=== PATIENT | female | born 1960 | race Caucasian/White ===

== ENCOUNTER 2024-11-15 17:39 | Inpatient (IN) ==
[2024-11-15 18:18] LABS: Hematocrit (blood only) 25.6 % (37.0-47.0); Hemoglobin 7.6 g/dl (12.0-16.0); Immature Granulocytes # (auto) 0.04 K/uL (0.01-0.20); Immature Granulocytes % (auto) 0.4 %; Mean Corpuscular Hemoglobin 23.1 pg (25.0-34.0); Mean Corpuscular Volume 77.8 fL (80.0-100.0); Platelet Count 395 K/uL (130-400); RDW Standard Deviation 49.9 fL (36.4-46.3); Red Blood Count 3.29 M/uL (4.20-5.40); White Blood Count 11.13 K/ul (4.8-10.8)
[2024-11-15 18:34] LABS: Alanine Aminotransferase 11.0 U/L (7-52); Albumin Globulin Ratio 1.1 (0.9-2); Alkaline Phosphatase 110.0 U/L (34-104); Anion Gap 9.0 (3-11); Bilirubin,Total 0.2 mg/dl (0.2-1.0); Blood Urea Nitrogen 40.0 mg/dl (6-23); Calcium 9.2 mg/dl (8.6-10.3); Carbon Dioxide 23.0 mmol/L (21-32); Chloride 106.0 mmol/L (98-107); Creatinine Clr Calc Pharmacy 57.1 ml/min; Globulin 3.5 gm/dl (2.5-4.0); Glucose 93.0 mg/dl (70-99(Fasting)); Potassium 3.7 mmol/L (3.5-5.1); Sodium 138.0 mmol/L (136-145); Total Protein 7.3 gm/dl (6.0-8.3)
[2024-11-15 18:38] LABS: Polychromasia 1+
[2024-11-15 18:46] LABS: INR 0.9 (0.9-1.1); Partial Thromboplastin Time 21 Seconds (21-31); Prothrombin Time 10.3 Seconds (9.0-12.0)
--- NOTE | 2024-11-15 19:12 | Emergency Department Note ---
ED Provider Note History of Present Illness Chief Complaint: Abnormal Labs/Diagnostic Testing Stated Complaint: SOB, LOW HEMOGLOBIN, ABN LABS, REF BY Time Seen by Provider: 11/15/24 18:13 63-year-old female who was referred to the emergency department by her PCP for evaluation of a GI bleed, dental infection, exertional chest pain and dizziness when getting up. The patient currently denies any chest discomfort. The patient reports that she is currently on Eliquis and Plavix for history of a heart stent, pulmonary emboli and DVT. Patient reports that she also has a pacemaker as well. Patient reports bright red blood per rectum that has been periodic for the past few weeks. The patient reports that she has been taking ibuprofen 600 mg twice daily as needed for recurrent dental abscesses that have been treated with multiple antibiotics. She is currently taking clindamycin that was started less than a week ago. She cannot find a dentist that will see her because of her pacemaker. She has had previous facial swelling that has since resolved since taking the clindamycin. Patient has not had any prior colonoscopy studies. She used to work for [employer] for many years, and reports that she has had issues with external hemorrhoids. She denies any melanotic stools or upper abdominal pain, nausea or coffee-ground vomitus. The patient currently denies any pain. Home Medications Medication Instructions Recorded Confirmed Type AMITRIPTYLINE HCL 10 mg PO HS ##0 11/04/13 History ATORVASTATIN (LIPITOR) 10 mg PO QAM #0 tabs 11/04/13 History Hydrocodon/Acetaminophen 5MG/300MG 1 tab PO Q6H PRN Pain #0 tabs 11/04/13 History (VICODIN (5MG/300MG)) LEVOTHYROXINE SODIUM (SYNTHROID) 50 mcg PO QAM #0 tabs 11/04/13 History Duloxetine HCl (Cymbalta) 30 mg PO QAM ##0 08/28/14 History Gabapentin (Neurontin) 100 mg PO TID #0 caps 08/28/14 History Allergies Allergy/AdvReac Type Severity Reaction Status Date / Time No Known Allergies Allergy Unverified 10/09/14 05:36 Past Med/Surg History Problem List (Updated 11/15/24 @ 22:51 by Melvin Acevedo) Paroxysmal atrial fibrillation (Acute) History of heart artery stent (Acute) Acute renal insufficiency (Acute) Dental infection (Acute) Anemia (Acute) Acute lower GI bleeding (Acute) Spondylosis of lumbosacral joint (Acute 01/25/13) Medical History Cardiac pacemaker Tobacco use disorder Reactive airway disease Presence of combination internal cardiac defibrillator (ICD) and pacemaker Nonischemic cardiomyopathy Iron deficiency anemia Hypertension History of pulmonary embolism Uterine fibroid Diabetes Dental abscess Coronary artery disease Controlled substance agreement signed Combined hyperlipidemia Chronic pain syndrome Adjustment disorder with depressed mood Acquired hypothyroidism Paroxysmal atrial fibrillation Degenerative disc disease, lumbar (01/25/13) Surgical History Status post coronary artery stent placement S/P lumbar laminectomy Social History (Updated 11/15/24 @ 19:12 by Melvin Acevedo) Smoking Status: Current every day smoker Tobacco Type: Cigarettes Cigarettes Per Day: 10-20 cigarettes/day; Hx Alcohol Use: No Hx Substance Use: No Preferred Language: Burmese Communication Ability: Effective Hand Fretted Instrument Maker Required: No Beliefs That Will Affect Care: None marital status: Single Current Living Situation: Spouse current occupational status: employed Other Information That Helps Us Care for You: No Feels Safe at Home: Yes Safety Concerns: Feels Safe At This Time Assistive Devices: Glasses Physical Exam Vital Signs Vital Signs - 24 hr 11/15/24 17:44 11/15/24 18:17 11/15/24 18:26 Temperature 36.7 C Temperature Source Temporal Artery Scan Pulse Rate 87 68 Pulse Rate from SpO2 Sensor Respiratory Rate 17 Blood Pressure 135/66 Blood Pressure Mean 89 Pulse Oximetry 98 99 Oxygen Delivery Method Room Air Room Air Sepsis Recent Fever Within 48 Hours No Sepsis New/Unexplained Change in Mental Status N/A Sepsis Action Taken by Nursing No Action Required 11/15/24 18:27 11/15/24 18:30 11/15/24 18:57 Temperature Temperature Source Pulse Rate 71 68 74 Pulse Rate from SpO2 Sensor 70 68 74 Respiratory Rate 22 21 17 Blood Pressure Blood Pressure Mean Pulse Oximetry 99 98 99 Oxygen Delivery Method Sepsis Recent Fever Within 48 Hours Sepsis New/Unexplained Change in Mental Status Sepsis Action Taken by Nursing 11/15/24 19:00 11/15/24 19:00 11/15/24 19:00 Temperature Temperature Source Pulse Rate Pulse Rate from SpO2 Sensor Respiratory Rate Blood Pressure 135/67 135/67 135/67 Blood Pressure Mean 84 84 84 Pulse Oximetry Oxygen Delivery Method Sepsis Recent Fever Within 48 Hours Sepsis New/Unexplained Change in Mental Status Sepsis Action Taken by Nursing 11/15/24 19:03 11/15/24 19:30 11/15/24 19:30 Temperature Temperature Source Pulse Rate 71 Pulse Rate from SpO2 Sensor 70 Respiratory Rate 17 Blood Pressure 128/68 128/68 Blood Pressure Mean 82 82 Pulse Oximetry 98 Oxygen Delivery Method Sepsis Recent Fever Within 48 Hours Sepsis New/Unexplained Change in Mental Status Sepsis Action Taken by Nursing 11/15/24 19:30 11/15/24 19:57 11/15/24 20:00 Temperature Temperature Source Pulse Rate 70 72 Pulse Rate from SpO2 Sensor 70 71 Respiratory Rate 28 H 18 Blood Pressure 145/69 H Blood Pressure Mean 92 Pulse Oximetry 99 99 Oxygen Delivery Method Sepsis Recent Fever Within 48 Hours Sepsis New/Unexplained Change in Mental Status Sepsis Action Taken by Nursing 11/15/24 20:00 11/15/24 20:18 11/15/24 20:30 Temperature Temperature Source Pulse Rate 66 Pulse Rate from SpO2 Sensor 66 Respiratory Rate 20 Blood Pressure 145/69 H 144/67 H Blood Pressure Mean 92 83 Pulse Oximetry 100 Oxygen Delivery Method Sepsis Recent Fever Within 48 Hours Sepsis New/Unexplained Change in Mental Status Sepsis Action Taken by Nursing 11/15/24 20:30 11/15/24 20:30 11/15/24 20:30 Temperature Temperature Source Pulse Rate 71 Pulse Rate from SpO2 Sensor 70 Respiratory Rate 15 Blood Pressure 144/67 H 144/67 H Blood Pressure Mean 83 83 Pulse Oximetry 98 Oxygen Delivery Method Sepsis Recent Fever Within 48 Hours Sepsis New/Unexplained Change in Mental Status Sepsis Action Taken by Nursing CONSTITUTIONAL: Healthy and well nourished. Alert and oriented X 3. Patient does not appear in any acute distress. HEENT: Normocephalic, atraumatic. Pupils equal, round and reactive. No scleral icterus or conjunctival injection. The patient does have a mild conjunctival pallor. NECK: Full active range of motion without discomfort. LYMPHATICS: No cervical chain adenopathy. RESPIRATORY: Clear to auscultation bilaterally with no wheezing, crackles, rhonchi or stridor. CARDIOVASCULAR: Regular rate and rhythm with no murmurs, rubs or gallops. GASTROINTESTINAL: Bowel sounds present in all quadrants. No focal abdominal tenderness to palpation, rigidity, guarding or rebound. MUSCULOSKELETAL: No peripheral edema noted. INTEGUMENTARY: No rash or other significant dermatologic conditions noted. HEMATOLOGIC: No ecchymosis or petechiae. PSYCHIATRIC: Positive affect. NEUROLOGIC: No focal neurologic deficits noted. Course Course Patient history and physical exam were performed. Nursing notes were reviewed. Vital signs were reviewed and were normal. The patient is not hypotensive, tachycardic or febrile. I also reviewed outside medical records, including the patient's outpatient note from today from her PCP (Dr. Lynch). Patient did provide a history of few month history of shortness of breath, fatigue and dizziness. Cardiac history is also well documented in her note, including history of left heart catheterization in April 2023 showing severe RCA disease which was stented. She was placed on Plavix and Eliquis at that time. Patient also had a pacemaker defibrillator review 2 months ago that showed some episodes of paroxysmal atrial fibrillation. Patient did have some blood work done in January 2020 showing a hemoglobin of 11.2, and hemoglobin last week of 7.7. Patient also has had recurrent dental infections and has been treated with several antibiotics, with last treatment being clindamycin. PCP had concern for risk factors of this infection. The patient also admits to taking ibuprofen, which certainly could increase the risk for upper GI bleed. Because of need for probable GI workup, she was sent to the emergency department for further evaluation and management of her multiple comorbidities and anemia. Patient history and physical exam were performed. Nursing notes were reviewed. Vital signs reviewed from triage and were grossly normal. IV access was established, and labs are ordered and drawn. An ECG was performed and did not show any concerning findings. The patient was placed on radiation monitor while in the emergency department. Further review of labs shows a mildly elevated white count of 11.13 with a hemoglobin of 7.6. Patient does have a mildly elevated absolute neutrophil count. Coag studies were normal. CMP shows a BUN and creatinine of 40 and 1.24, respectively. The patient was hydrated with a liter normal saline. Findings were discussed with Dr. Paulino, ED attending physician. He did recommend initiating Protonix bolus and drip. Findings were also discussed with the patient. I did recommend admission for further workup and management. I did discuss possible need for blood transfusion, and the patient did sign informed consent for blood transfusion as needed. [facility]. Please see their dictation for further treatment and final disposition. The hospital service also did ask that I reach out to Dr. Mccormick with the coagulation clinic about the need for possible reversal. I did speak with Dr. Mccormick, who did not feel the reversal was needed. She does report that we do not have Andexxa for reversal of the Eliquis, and given that her hemoglobin is relatively stable without any recreating condition, she recommended just observing the patient overnight. She did welcome further contact with her overnight as needed for any change in condition. Administered Medications Pantoprazole Sodium 40 mg/ (Dextrose) 100 mls @ 20 mls/hr IV Q5H TRACY Stop: 12/15/24 19:29 Last Admin: 11/15/24 19:59 Dose: 8 mg/hr, 20 mls/hr Documented By: SALVADOR Lactated Ringer's (Lr) 1,000 mls @ 80 mls/hr IV .[id number] TRACY Stop: 11/16/24 21:29 Last Admin: 11/15/24 21:32 Dose: 80 mls/hr Documented By: XIOMY Insulin Aspart (Insulin Aspart Per Unit Charge) 0 units SC ACHS TRACY Stop: 12/15/24 21:27 Last Admin: 11/15/24 21:48 Dose: Not Given Documented By: XIOMY Discontinued Medications Pantoprazole Sodium 80 mg/ (Dextrose) 120 mls @ 480 mls/hr IV ONE STA Stop: 11/15/24 19:16 Last Infusion: 11/15/24 19:59 Dose: Infused Documented By: Admin: 11/15/24 19:44 Dose: 480 mls/hr Documented By: SALVADOR Ceftriaxone Sodium (Rocephin) 1,000 mg in 50 mls @ 100 mls/hr IV NOW STA Stop: 11/15/24 21:37 Last Admin: 11/15/24 22:08 Dose: 100 mls/hr Documented By: XIOMY Morphine Sulfate (Morphine Sulfate 2 Mg/Ml Carp) 2 mg IV NOW STA Stop: 11/15/24 19:33 Last Admin: 11/15/24 19:41 Dose: 2 mg Documented By: SALVADOR Pantoprazole Sodium (Pantoprazole Bolus/Drip) 1 each IV NOW STA Stop: 11/15/24 19:03 Last Admin: 11/15/24 19:52 Dose: Not Given Documented By: SALVADOR Medical Decision Making Medical Records Attestation: I reviewed the patient's medical records. Home Medications was personally reviewed by me Laboratory Data Attestation: I reviewed the patient's lab results. 11/15/24 18:01 11/15/24 18:01 Lab Results 11/15/24 11/15/24 11/15/24 Range/Units 18:01 18:03 19:33 WBC 11.13 H (4.8-10.8) K/ul RBC 3.29 L (4.20-5.40) M/uL Hgb 7.6 L (12.0-16.0) g/dl Hct 25.6 L (37.0-47.0) % MCV 77.8 L (80.0-100.0) fL MCH 23.1 L (25.0-34.0) pg MCHC 29.7 L (32.0-36.0) g/dL RDW Std Deviation 49.9 H (36.4-46.3) fL RDW Coeff of Lizbeth 17.8 H (11.5-14.5) % Plt Count 395 (130-400) K/uL MPV 9.7 (9.4-12.4) fL Immature Gran % (Auto) 0.4 % Neut % (Auto) 59.0 % Lymph % (Auto) 27.7 % [place] % (Auto) 9.4 % Eos % (Auto) 2.7 % Baso % (Auto) 0.8 % Neut # (Auto) 6.57 H (1.40-6.50) K/uL Lymph # (Auto) 3.08 (1.20-3.40) K/uL [place] # (Auto) 1.05 H (0.11-0.59) K/uL Eos # (Auto) 0.30 (0.00-0.50) K/uL Baso # (Auto) 0.09 (0.00-0.20) K/uL Immature Gran # (Auto) 0.04 (0.01-0.20) K/uL Polychromasia 1+ PT 10.3 (9.0-12.0) Seconds INR 0.9 (0.9-1.1) APTT 21 (21-31) Seconds PTT Ratio 0.8 Sodium 138 (136-145) mmol/L Potassium 3.7 (3.5-5.1) mmol/L Chloride 106 (98-107) mmol/L Carbon Dioxide 23 (21-32) mmol/L Anion Gap 9 (3-11) BUN 40 H (6-23) mg/dl Creatinine 1.24 H (0.6-1.2) mg/dl Est Cr Clr Drug Dosing 57.1 ml/min eGFR 49.51 BUN/Creatinine Ratio 32.3 H (10-20) Glucose 93 (70-99(Fasting)) mg/dl Calcium 9.2 (8.6-10.3) mg/dl Total Bilirubin 0.2 (0.2-1.0) mg/dl AST 11 L (13-39) U/L ALT 11 (7-52) U/L Alkaline Phosphatase 110 H (34-104) U/L Troponin I High Sens 7.0 (0-14) pg/ml Total Protein 7.3 (6.0-8.3) gm/dl Albumin 3.8 (3.4-5.0) gm/dl Globulin 3.5 (2.5-4.0) gm/dl Albumin/Globulin Ratio 1.1 (0.9-2) Blood Type B Positive Blood Type Recheck B Positive Antibody Screen NEGATIVE Crossmatch See Detail ECG Data Attestation: I personally reviewed and interpreted this ECG as follows: Indication: + weakness Rate (beats per minute): 67 Rhythm: + normal sinus ECG Intervals/blocks: + Normal QRS, + Normal QT and + Normal TN ECG [place]: + Normal ECG ST segments: + Normal ST segments Comparison ECG Date: from (08/28/2014) Change: the following changes noted (No recurrent PACs on today's ECG) MDM Narrative Cardiac monitoring: An order was placed for continuous cardiac monitoring. The monitor shows a rate of 67 bpm with a normal sinus rhythm. court recording monitor history was reviewed throughout the evaluation, and no dysrhythmias were noted. See ED Course section for further details of today's visit. The patient was referred to the emergency department for a low hemoglobin level. The patient is currently on Eliquis and Plavix for history of cardiac stent, pulmonary emboli and DVT. Patient is also been dealing with recurrent dental infections, most recently treated with clindamycin robotics. Her examination today does not show evidence for abscess formation or facial cellulitis, therefore additional IV antibiotics were deferred. Further workup does not show any electrolyte abnormalities. She does have an increased BUN and creatinine, likely secondary to hemoconcentration. The patient was hydrated with a liter normal saline. Hemoglobin on initial check today was 7.6. Patient does report bright red blood per rectum, as well as history of hemorrhoids, which is certainly consistent with a lower GI bleed. However given her NSAIDs use, concern is certainly present for possible upper GI bleed as well. The patient was administered IV proton pump inhibitors. The case was discussed with my attending physician, hospitalist, as well as Dr. Mccormick for suggested management and need for Eliquis or Plavix reversal, and she recommended not doing so overnight. Please see hospitalist dictations for further treatment and final disposition. Impression Acute lower GI bleeding, Anemia, Dental infection, Acute renal insufficiency, History of heart artery stent, Paroxysmal atrial fibrillation Discharge Plan Visit Data Chief Complaint: Abnormal Labs/Diagnostic Testing Stated Complaint: SOB, LOW HEMOGLOBIN, ABN LABS, REF BY ED Provider: Sven Paulino ED Midlevel Provider: Melvin Acevedo Discharge Problem: Acute lower GI bleeding, Anemia, Dental infection, Acute renal insufficiency, History of heart artery stent, Paroxysmal atrial fibrillation Patient Disposition: Admitted As Inpatient Condition: Fair Discharge Instructions Interventions: ED Discharge Assessment Last Done: 11/15/24 21:03 ED DC CONDITION Conditon at Discharge Condition at Discharge: Fair
[2024-11-15] MEDS: MoRPHine SULFATE 2 MG/ML CARP IV STA (19:41)
[2024-11-15] MEDS: PANTOPRAZOLE BOLUS/DRIP IV STA (19:52)
[2024-11-15] MEDS: PANTOprazole 40 MG in DEXTROSE 5% MINI-B 100 ML IV SCH (19:59)
--- NOTE | 2024-11-15 20:05 | History & Physical Report ---
Date of Service November 15, 2024 Assessment & Plan (1) Lower GI bleed: (2) Dental infection: (3) Anemia: (4) Acute renal insufficiency: Plan Patient is a 63-year-old female with past medical history of tobacco use (10 to 20 cigarettes/day), nonischemic cardiomyopathy and paroxysmal A-fib s/p pacemaker with ICD, CAD s/p cardiac stent April 2023, PE and DVT 2020, DM, COY, HTN. Patient presented due to referral by her PCP for hemoglobin of 7.7. Patient has had intermittent bright red blood in stool as well as exertional dyspnea, dizziness, and fatigue. She has been taking ibuprofen over the weekend as she has had a dental abscess on her right side for several months and is currently undergoing a course of antibiotics. She is being admitted for a suspected lower GI bleed. #lower GI bleed - Hgb 7.6, Hct 25.6%, BUN 40 on admission. Hemodynamically stable. Symptomatic with intermittent dizziness, dyspnea, and fatigue - asymptomatic at bedside. Patient denies ever having previous EGD or colonoscopy. Recent NSAID use with anticoagulation. Discussion with operational meteorologist anticoagulation clinic regarding Eliquis and antiplatelet reversal - given patient is relatively stable will defer reversal at this time - available by phone if condition changes - AP CT w/o con ordered - negative for acute changes - start on IV Rocephin - Protonix drip started in ED - transition to Protonix 40mg IV BID - GI consulted - N.p.o.; hold PO medications - LR at 80 mL/hour times 2L - H&H overnight Q4H; blood consent forms signed by ED provider - Will transfuse 2 U pRBC on admission given symptomatic - Hemoccult all stools - trend CBC #dental abscess - ongoing for several months, patient with difficultly finding a dentist. WBC 11.31 with neutrophil predominance. Currently undergoing a course of clindamycin with 6 PO doses left at time of admission. Transition to clindamycin IV with n.p.o. status - to complete course 09/17 IV Tylenol as needed with breakthrough morphine as needed - warm compress prn #renal insufficiency creatinine increased from 0.93-1.24, BUN 40. IVF as above Trend BMP #Hx PE and DVT - hold Eliquis #paroxysmal A-fib/nonischemic cardiomyopathy/CAD s/p pacer and ICD in place, cardiac stenting April 2023. - Holding Eliquis and Plavix - Hold statin and carvedilol while NPO #tobacco use 10 to 20 cigarettes/day. Nicotine patch ordered Encourage smoking cessation #Type II DM hold metformin - loose SSI ordered #mental health hold amitriptyline and duloxetine with n.p.o. status VTE ppx: SCDs, hold Eliquis with GI bleed - note hx of DVT and PE in 2020 Dispo: PCU Admission and Anticipated Discharge Date Admission Date: 11/15/24 History of Present Illness Chief Complaint: abnormal labs Primary Care Provider: Freya Lynch MD Patient is a 63-year-old female with past medical history of tobacco use (10 to 20 cigarettes/day), nonischemic cardiomyopathy and paroxysmal A-fib s/p pacemaker with ICD, CAD s/p cardiac stent April 2023, PE and DVT 2020, DM, COY, HTN. Patient presented due to referral by her PCP for hemoglobin of 7.7. Patient has had intermittent bright red blood in stool as well as exertional dyspnea, dizziness, and fatigue. She has been taking ibuprofen over the weekend as she has had a dental abscess on her right side for several months and is currently undergoing a course of antibiotics. She is being admitted for a suspected lower GI bleed. Patient seen at bedside with her partner present. She stated she came in because of referral for her low hemoglobin. She does have intermittent bright red blood in her stool sometimes filling the toilet. Most recent episode was probably this morning. She is on both Eliquis and Plavix for history of PE and DVT in 2020 as well as A-fib. She stated she has had exertional dyspnea, dizziness when going from sitting to standing, and fatigue that began over the weekend. She has been taking ibuprofen 600 Mg twice daily regularly over the weekend due to this right sided dental abscess that has been ongoing for several months. She occasionally takes her as needed Vicodin that she has for back pain. She is currently on clindamycin and has 6 doses left for the abscess, it is currently doing well and her pain went from 8/10 to 4/10 after morphine in the ED. She denies any nausea, vomiting, chest pain, melena, diarrhea, constipation, hematuria. She continues to smoke 10 to 20 cigarettes/day, nicotine patch will be ordered. She denies any alcohol use. She is due for her evening medications, last dose of Eliquis was this morning. She wishes to be full code. She has never had an EGD or colonoscopy. Allergies Allergy/AdvReac Type Severity Reaction Status Date / Time No Known Allergies Allergy Unverified 10/09/14 05:36 Home Medications Medication Instructions Recorded Confirmed Type AMITRIPTYLINE HCL 10 mg PO HS ##0 11/04/13 History ATORVASTATIN (LIPITOR) 10 mg PO QAM #0 tabs 11/04/13 History Hydrocodon/Acetaminophen 5MG/300MG 1 tab PO Q6H PRN Pain #0 tabs 11/04/13 History (VICODIN (5MG/300MG)) LEVOTHYROXINE SODIUM (SYNTHROID) 50 mcg PO QAM #0 tabs 11/04/13 History Duloxetine HCl (Cymbalta) 30 mg PO QAM ##0 08/28/14 History Gabapentin (Neurontin) 100 mg PO TID #0 caps 08/28/14 History apixaban 5 mg tablet (Eliquis) 5 mg PO BID 11/16/24 11/16/24 History carvedilol 12.5 mg tablet mg 11/16/24 History clopidogrel 75 mg tablet 75 mg PO DAILY 11/16/24 11/16/24 History Past Med/Surg History Problem List (Updated 11/15/24 @ 23:42 by Renate Estevez PA-C) Lower GI bleed Paroxysmal atrial fibrillation (Acute) History of heart artery stent (Acute) Acute renal insufficiency (Acute) Dental infection (Acute) Anemia (Acute) Acute lower GI bleeding (Acute) Spondylosis of lumbosacral joint (Acute 01/25/13) Medical History Cardiac pacemaker Tobacco use disorder Reactive airway disease Presence of combination internal cardiac defibrillator (ICD) and pacemaker Nonischemic cardiomyopathy Iron deficiency anemia Hypertension History of pulmonary embolism Uterine fibroid Diabetes Dental abscess Coronary artery disease Controlled substance agreement signed Combined hyperlipidemia Chronic pain syndrome Adjustment disorder with depressed mood Acquired hypothyroidism Paroxysmal atrial fibrillation Degenerative disc disease, lumbar (01/25/13) Surgical History Status post coronary artery stent placement S/P lumbar laminectomy Social History (Updated 11/15/24 @ 19:12 by Melvin G Graton) Smoking Status: Current every day smoker Tobacco Type: Cigarettes Cigarettes Per Day: 10-20 cigarettes/day; Hx Alcohol Use: No Hx Substance Use: No Preferred Language: [place] Communication Ability: Effective Cytology Teacher Required: No Beliefs That Will Affect Care: None marital status: Single Current Living Situation: Spouse current occupational status: employed Other Information That Helps Us Care for You: No Feels Safe at Home: Yes Safety Concerns: Feels Safe At This Time Assistive Devices: Glasses Review of Systems Review of Systems: see HPI Physical Exam Physical Exam: The patient is awake, alert and oriented 3, well developed and well nourished, normocephalic and atraumatic, in no acute distress. Non-toxic appearing. HEENT- EOMI, mucous membranes moist. Hearing grossly intact. Heart-normal S1 and S2. No murmurs, rubs or gallops. Lungs-clear bilaterally, no respiratory distress, no accessory muscle use. Abdomen-normal bowel sounds and soft. No ascites noted. Non-tender. Extremities- no clubbing, cyanosis, or edema. Rheumatologic-normal range of motion. Psychiatric-normal affect. Results & Data Results & Data Vital Signs (Past 12 Hours) Vital Signs Temp Pulse Resp BP Pulse Ox O2 Del Method 11/15/24 18:26 68 11/15/24 18:17 99 Room Air 11/15/24 17:44 36.7 C 87 17 135/66 98 Room Air Laboratory Results Reviewed CBC, PT/INR, CMP, troponin, type and screen Medications Administered ED - Protonix drip, morphine 2g IV ECG Additional Comments: NSR, rate 67 QTC 390 Code Status & VTE Plan Code Status full code VTE Prophylaxis Plan VTE Prophylaxis will be ordered: Yes Supervising Physician Co-Signing Physician Notes Attending addendum: I have physically seen this patient, have supervised the medical residents activities, and agree with the H&P unless as otherwise noted. Assessment and Plan: The patient is a 63-year-old female with past medical history including tobacco use disorder, nonischemic cardiomyopathy, paroxysmal atrial fibrillation status post pacemaker with ICD, CAD status post cardiac stent April 2023, PE and DVT 2020, diabetes mellitus, COY, and hypertension. The patient was referred to the emergency department by her PCP when outpatient laboratory showed hemoglobin of 7.7. The labs were ordered due to patient's report of intermittent bright red blood in stool and dyspnea on exertion, dizziness and fatigue. The patient has been taking ibuprofen 600 mg p.o. twice daily, in addition to her Eliquis and Plavix. She has recently been treated for dental infection, and was placed on ibuprofen and is taking an antibiotic clindamycin. Lower GI bleed/bright red blood per rectum- Hemoglobin 7.6 on admission, and was 7.7 in outpatient setting Hemoglobin on 11/10/2024 was 7.7, and on 01/29/2024 was 11.2. Protonix drip begun in the ED, will continue for now, and then changed to 40 mg IV twice daily N.p.o. LR at 80 mL/h x 2 L H&H every 4 hours overnight Transfuse 2 units PRBCs due to acute blood loss and being on anticoagulation and antiplatelet agents. Ceftriaxone IV daily CT scan abdomen pelvis without contrast negative for acute changes Dental abscess- Stopping ibuprofen as noted above Change clindamycin from oral to IV Ceftriaxone added as above Acetaminophen 1 g IV every 8 hours as needed for mild pain or fever Morphine IV for breakthrough as noted Renal insufficiency- Creatinine 1.24 on admission, with base of 0.93 IV fluids as noted above and then recheck in a.m. PAF/nonischemic cardiomyopathy/CAD- Presence of pacer/ICD History of coronary stenting in April 2023 Temporarily hold Eliquis and Plavix due to acute bleed. No reversal per on-call service Hold carvedilol while n.p.o. May need IV Lopressor as she is transfused Tobacco use disorder- Presently smokes 10 to 20 cigarettes daily Nicotine patch as noted Smoking cessation counseling Diabetes mellitus- Hold metformin Placed on Accu-Cheks with NovoLog SSI Mood disorder- Temporarily hold amitriptyline and duloxetine while n.p.o., PG Care Time/CCT Total # of Minutes Spent Total Time Spent with Patient: Total time spent is greater than 50% in coordination of care (as documented) at patient's floor/unit and/or counseling patient: Coding Level of Care Code 80906 INT INP/OBS CARE 3/75MIN Diagnoses Lower GI bleed K92.2 Dental infection K04.7 Anemia D64.9 Acute renal insufficiency N28.9
[2024-11-15] MEDS ORDERED: SODIUM CHLORIDE 0.9% 100 ML IV PRN (21:08)
[2024-11-15] MEDS ORDERED: GLUCOSE 10 TAB/TUBE PO PRN (21:28)
[2024-11-15] MEDS ORDERED: GLUCOSE 40% GEL 15 GM TUBE PO PRN (21:28)
[2024-11-15] MEDS ORDERED: GLUCAGON FOR INJ 1 MG VIAL SQ PRN (21:28)
[2024-11-15] MEDS ORDERED: DEXTROSE 50% 50 ML SYRINGE IV PRN (21:28)
[2024-11-15] MEDS ORDERED: ONDANSETRON INJ 2 MG/ML 2 ML VIAL IV PRN (21:28)
[2024-11-15] MEDS ORDERED: CARBOHYDRATES FOR HYPOGLYCEMIA PO PRN (21:28)
[2024-11-15] MEDS: LACTATED RINGER'S 1,000 ML IV SCH (21:32)
[2024-11-15] MEDS: INSULIN ASPART PER UNIT CHARGE SC SCH (21:48)
[2024-11-15] MEDS: cefTRIAXone SODIUM 1,000 MG/50 ML BAG IV STA (22:08)
[2024-11-15] MEDS: CLINDAMYCIN/D5W 600 MG/50 ML BAG IV ONE (22:37)
--- NOTE | 2024-11-15 22:43 | CT Scan Report ---
Exam(s): CT ABDOMEN + PELVIS Without Contrast EXAM: CT Abdomen and Pelvis Without Intravenous Contrast CLINICAL HISTORY: gi bleed. TECHNIQUE: Axial computed tomography images of the abdomen and pelvis without intravenous contrast. CTDI is 28.14 mGy and DLP is 1437.03 mGy-cm. Automated exposure control was utilized for the study. A dose lowering technique was utilized adhering to the principles of ALARA. COMPARISON: KUB 10-24-2014. FINDINGS: Lung bases: Unremarkable. No mass. No consolidation. ABDOMEN: Liver: Unremarkable. Gallbladder and bile ducts: Unremarkable. No calcified stones. No ductal dilation. Pancreas: Unremarkable. No ductal dilation. Spleen: Unremarkable. No splenomegaly. Adrenals: Unremarkable. No mass. Kidneys and ureters: No obstructive uropathy. No obstructing renal or ureteral calculi. No hydronephrosis or hydroureter. Stomach and bowel: No obstruction or ileus. Scattered colonic diverticuli without evidence for diverticulitis. PELVIS: Appendix: No findings to suggest acute appendicitis. Bladder: Partially contracted. No stones. Reproductive: Probable small calcified uterine fibroid. Ovaries not well characterized. ABDOMEN and PELVIS: Intraperitoneal space: No free air. No free fluid. Bones/joints: No acute fracture. Postoperative and degenerative changes of the lumbar spine. Soft tissues: Unremarkable. Vasculature: Atherosclerotic vascular calcifications. No abdominal aortic aneurysm. Lymph nodes: Unremarkable. No enlarged lymph nodes. IMPRESSION: Examination limited by lack of intravenous contrast material. Scattered colonic diverticuli without evidence for diverticulitis. Probable small calcified uterine fibroid. Senescent changes. Electronically signed by: Carrillo Power M.D. 11/15/24 22:42 PM
[2024-11-15] MEDS: ACETAMINOPHEN 1,000 MG/100 ML VIAL IV PRN (23:10)
[2024-11-16 01:13] LABS: Hematocrit (blood only) 28.0 % (37.0-47.0); Hemoglobin 8.4 g/dl (12.0-16.0); Immature Granulocytes # (auto) 0.03 K/uL (0.01-0.20); Immature Granulocytes % (auto) 0.3 %; Mean Corpuscular Hemoglobin 23.5 pg (25.0-34.0); Mean Corpuscular Volume 78.2 fL (80.0-100.0); Platelet Count 347 K/uL (130-400); RDW Standard Deviation 50.1 fL (36.4-46.3); Red Blood Count 3.58 M/uL (4.20-5.40); White Blood Count 10.61 K/ul (4.8-10.8)
[2024-11-16] MEDS ORDERED: SODIUM CHLORIDE 0.9% 100 ML IV PRN (01:38)
[2024-11-16] MEDS: MoRPHine SULFATE 4 MG/ML 1 ML CARP\\VIAL IV PRN (04:17)
[2024-11-16] MEDS: CLINDAMYCIN/D5W 600 MG/50 ML BAG IV SCH (05:50)
[2024-11-16] MEDS: PANTOprazole 40 MG/10 ML SYR IV SCH (07:56)
[2024-11-16] MEDS: NICOTINE 21 MG/24 HR TDSY TD SCH (07:56)
[2024-11-16] MEDS: REMOVE NICODERM PATCH SCH (07:57)
[2024-11-16 08:39] LABS: Hematocrit (blood only) 31.2 % (37.0-47.0); Hemoglobin 9.6 g/dl (12.0-16.0)
[2024-11-16 08:53] LABS: Anion Gap 6.0 (3-11); Blood Urea Nitrogen 30.0 mg/dl (6-23); Calcium 8.7 mg/dl (8.6-10.3); Carbon Dioxide 23.0 mmol/L (21-32); Chloride 109.0 mmol/L (98-107); Creatinine Clr Calc Pharmacy 78.1 ml/min; Glucose 102.0 mg/dl (70-99(Fasting)); Potassium 4.2 mmol/L (3.5-5.1); Sodium 138.0 mmol/L (136-145)
[2024-11-16 08:54] LABS: Alanine Aminotransferase 10.0 U/L (7-52); Albumin Globulin Ratio 1.1 (0.9-2); Alkaline Phosphatase 97.0 U/L (34-104); Anion Gap 7.0 (3-11); Bilirubin,Total 0.6 mg/dl (0.2-1.0); Blood Urea Nitrogen 30.0 mg/dl (6-23); Calcium 8.6 mg/dl (8.6-10.3); Carbon Dioxide 23.0 mmol/L (21-32); Chloride 109.0 mmol/L (98-107); Creatinine Clr Calc Pharmacy 76.5 ml/min; Globulin 3.2 gm/dl (2.5-4.0); Glucose 102.0 mg/dl (70-99(Fasting)); Magnesium 1.9 mg/dl (1.7-2.4); Potassium 4.2 mmol/L (3.5-5.1); Sodium 139.0 mmol/L (136-145); Total Protein 6.7 gm/dl (6.0-8.3)
--- NOTE | 2024-11-16 10:02 | Oral/Maxillofacial Consult ---
Date of Consultation November 16, 2024 Assessment & Plan (1) Lower GI bleed: (2) Paroxysmal atrial fibrillation: (3) History of heart artery stent: (4) Acute renal insufficiency: (5) Dental infection: (6) Anticoagulated on Eliquis: History of Present Illness Attending Physician: Davide Adam DO History of Present Illness Assessment and Plan: The patient is a 63-year-old female with past medical history including tobacco use disorder, nonischemic cardiomyopathy, paroxysmal atrial fibrillation status post pacemaker with ICD, CAD status post cardiac stent April 2023, PE and DVT 2020, diabetes mellitus, COY, and hypertension. The patient was referred to the emergency department by her PCP when outpatient laboratory showed hemoglobin of 7.7. The labs were ordered due to patient's report of intermittent bright red blood in stool and dyspnea on exertion, dizziness and fatigue. The patient has been taking ibuprofen 600 mg p.o. twice daily, in addition to her Eliquis and Plavix. Dental pain 8 out of 10 upper right first molar # 3 She has recently been treated for dental infection, and was placed on ibuprofen and is taking an antibiotic clindamycin. The dental pain has not improved. The upper # 3 is tender to pressure-not able to see dentist due to insurance issues Pain and on/off swelling x months I will order CT scan to evaluate the teeth and sinus once CT reviewed will formulate a treatment plan Past history reviewed Dental abscess- Stopping ibuprofen as noted above Change clindamycin from oral to IV Ceftriaxone added as above Acetaminophen 1 g IV every 8 hours as needed for mild pain or fever Morphine IV for breakthrough as noted Eliquis on hold Lower GI bleed/bright red blood per rectum- Hemoglobin 7.6 on admission, and was 7.7 in outpatient setting Hemoglobin on 11/10/2024 was 7.7, and on 01/29/2024 was 11.2. Protonix drip begun in the ED, will continue for now, and then changed to 40 mg IV twice daily N.p.o. LR at 80 mL/h x 2 L H&H every 4 hours overnight Transfuse 2 units PRBCs due to acute blood loss and being on anticoagulation and antiplatelet agents. Ceftriaxone IV daily CT scan abdomen pelvis without contrast negative for acute changes Allergies Allergy/AdvReac Type Severity Reaction Status Date / Time No Known Allergies Allergy Unverified 10/09/14 05:36 Home Medications Medication Instructions Recorded Confirmed Type AMITRIPTYLINE HCL 10 mg PO HS ##0 11/04/13 History ATORVASTATIN (LIPITOR) 10 mg PO QAM #0 tabs 11/04/13 History Hydrocodon/Acetaminophen 5MG/300MG 1 tab PO Q6H PRN Pain #0 tabs 11/04/13 History (VICODIN (5MG/300MG)) LEVOTHYROXINE SODIUM (SYNTHROID) 50 mcg PO QAM #0 tabs 11/04/13 History Duloxetine HCl (Cymbalta) 30 mg PO QAM ##0 08/28/14 History Gabapentin (Neurontin) 100 mg PO TID #0 caps 08/28/14 History apixaban 5 mg tablet (Eliquis) 5 mg PO BID 11/16/24 11/16/24 History carvedilol 12.5 mg tablet mg 11/16/24 History clopidogrel 75 mg tablet 75 mg PO DAILY 11/16/24 11/16/24 History Patient History Medical History Cardiac pacemaker Tobacco use disorder Reactive airway disease Presence of combination internal cardiac defibrillator (ICD) and pacemaker Nonischemic cardiomyopathy Iron deficiency anemia Hypertension History of pulmonary embolism Uterine fibroid Diabetes Dental abscess Coronary artery disease Controlled substance agreement signed Combined hyperlipidemia Chronic pain syndrome Adjustment disorder with depressed mood Acquired hypothyroidism Paroxysmal atrial fibrillation Degenerative disc disease, lumbar (01/25/13) Surgical History Status post coronary artery stent placement S/P lumbar laminectomy Social History (Updated 11/15/24 @ 19:12 by Melvin Acevedo) Smoking Status: Current every day smoker Tobacco Type: Cigarettes Cigarettes Per Day: 10-20 cigarettes/day; Hx Alcohol Use: No Hx Substance Use: No Preferred Language: Hebrew Communication Ability: Effective Rn Clinical Review Required: No Beliefs That Will Affect Care: None marital status: Single Current Living Situation: Spouse current occupational status: employed Other Information That Helps Us Care for You: No Feels Safe at Home: Yes Safety Concerns: Feels Safe At This Time Assistive Devices: Glasses Results & Data Vital Signs (Past 12 Hours) Vital Signs Temp Pulse Pulse Resp BP BP Pulse Ox 11/16/24 07:03 36.6 C 66 18 156/78 H 93 11/16/24 04:53 63 16 177/73 H 94 11/16/24 04:12 36.5 C 72 16 161/72 H 94 11/16/24 03:12 36.6 C 70 18 166/73 H 94 11/16/24 03:02 36.6 C 63 18 152/71 H 94 11/16/24 02:42 36.7 C 63 16 160/72 H 91 11/16/24 02:27 36.7 C 64 16 141/63 H 96 11/16/24 02:09 36.5 C 66 16 142/73 H 96 11/16/24 00:49 36.5 C 61 16 150/74 H 95 11/16/24 00:33 36.5 C 69 16 160/68 H 97 11/15/24 23:33 36.5 C 65 16 159/81 H 98 11/15/24 23:03 36.6 C 62 16 160/78 H 96 11/15/24 22:48 36.4 C L 64 16 153/77 H 97 11/15/24 22:29 68 11/15/24 22:29 36.5 C 68 20 157/80 H 99 O2 Del Method 11/16/24 07:03 Room Air 11/16/24 04:53 11/16/24 04:12 11/16/24 03:12 11/16/24 03:02 Room Air 11/16/24 02:42 11/16/24 02:27 11/16/24 02:09 11/16/24 00:49 11/16/24 00:33 11/15/24 23:33 11/15/24 23:03 11/15/24 22:48 11/15/24 22:29 11/15/24 22:29 PG Care Time/CCT Total # of Minutes Spent Total Time Spent with Patient: Total time spent is greater than 50% in coordination of care (as documented) at patient's floor/unit and/or counseling patient: Coding Level of Care Code 80852 OFFICE CONSULT LVL 06/19M Diagnoses Lower GI bleed K92.2 Paroxysmal atrial fibrillation I48.0 History of heart artery stent Z95.5 Acute renal insufficiency N28.9 Dental infection K04.7 Anticoagulated on Eliquis Z79.01
--- NOTE | 2024-11-16 11:20 | Gastrointestinal Consultation ---
Date of Consultation November 16, 2024 Assessment & Plan (1) Anemia: With intermittent BRBPR. -Continue to monitor H/H -Continue PPI gtt -Plan for EGD/colonoscopy possibly Thursday once she has washout time for her Plavix. Eliquis presently on hold as well as Plavix. Supervising Physician Co-Signing Physician Notes The patient was seen and evaluated. Hospital labs, data, records and imaging reviewed. The case was discussed with the GI EDU and I agree with her assessment and plan as outlined above. The patient presents with anemia in the setting of hematochezia. While this may represent anal outlet bleeding the patient has not had prior GI evaluation in therefore is warranted particular in the setting of chronic anticoagulation/antiplatelet therapy. EGD and colonoscopy will be planned for 11/18/2024 after appropriate washout of Plavix for 3 days. Further recommendations to follow after endoluminal evaluation as above. History of Present Illness Reason for Consultation: lower GI bleed Attending Physician: Davide Adam DO History of Present Illness Patient is a 63 yo female with PMH of tobacco use, nonischemic cardiomyopathy, paroxysmal afib s/p pacemaker with ICD, CAD s/p cardiac stent April 2023, PE and DVT in 2020, DM2, COY, HTN. She was referred to the ED by her PCP when her outpatient labs yielded a hemoglobin of 7.7. She has had intermittent BRBPR followed by periods of normal stools. She does take Eliquis, Plavix, and recently started taking Ibuprofen due to a dental abscess. She denies significant abdominal pain or discomfort. She has never had an EGD or colonoscopy. No family history of relevant GI abnormalities. No personal history of GI issues. Since admission, H/H is now 9.6/31.2 after transfusion of PRBCs. BUN 30. Creatinine 1.01. CT abd/pelvis without acute findings. She is on IV PPI gtt at present. Allergies Allergy/AdvReac Type Severity Reaction Status Date / Time No Known Allergies Allergy Unverified 10/09/14 05:36 Home Medications Medication Instructions Recorded Confirmed Type AMITRIPTYLINE HCL 10 mg PO HS ##0 11/04/13 History ATORVASTATIN (LIPITOR) 10 mg PO QAM #0 tabs 11/04/13 History Hydrocodon/Acetaminophen 5MG/300MG 1 tab PO Q6H PRN Pain #0 tabs 11/04/13 History (VICODIN (5MG/300MG)) LEVOTHYROXINE SODIUM (SYNTHROID) 50 mcg PO QAM #0 tabs 11/04/13 History Duloxetine HCl (Cymbalta) 30 mg PO QAM ##0 08/28/14 History Gabapentin (Neurontin) 100 mg PO TID #0 caps 08/28/14 History apixaban 5 mg tablet (Eliquis) 5 mg PO BID 11/16/24 11/16/24 History carvedilol 12.5 mg tablet mg 11/16/24 History clopidogrel 75 mg tablet 75 mg PO DAILY 11/16/24 11/16/24 History Patient History Medical History Cardiac pacemaker Tobacco use disorder Reactive airway disease Presence of combination internal cardiac defibrillator (ICD) and pacemaker Nonischemic cardiomyopathy Iron deficiency anemia Hypertension History of pulmonary embolism Uterine fibroid Diabetes Dental abscess Coronary artery disease Controlled substance agreement signed Combined hyperlipidemia Chronic pain syndrome Adjustment disorder with depressed mood Acquired hypothyroidism Paroxysmal atrial fibrillation Degenerative disc disease, lumbar (01/25/13) Surgical History Status post coronary artery stent placement S/P lumbar laminectomy Social History Smoking Status: Current every day smoker Tobacco Type: Cigarettes Cigarettes Per Day: 10-20 cigarettes/day; Hx Alcohol Use: No Hx Substance Use: No Preferred Language: Spanish Communication Ability: Effective Track Liner Operator Required: No Beliefs That Will Affect Care: None marital status: Single Current Living Situation: Spouse current occupational status: employed Other Information That Helps Us Care for You: No Feels Safe at Home: Yes Safety Concerns: Feels Safe At This Time Assistive Devices: Cane and Walker Review of Systems Constitutional: no fever and no chills Respiratory: + dyspnea on exertion; no cough Cardiovascular: no chest pain Gastrointestinal: + blood in stools; no abdominal pain, no nausea, no vomiting, no coffee ground emesis, no hematemesis, no change in bowel habits, no change in stools and no melena Physical Exam Constitutional: well developed Respiratory: normal respiratory effort Cardiovascular: Rate/Rhythm: regular rate Gastrointestinal (Abdomen): normal bowel sounds, soft, nontender, no hepatosplenomegaly Psychiatric: Orientation: alert and oriented x 3 Results & Data Vital Signs (Past 12 Hours) Vital Signs Temp Pulse Pulse Resp BP BP Pulse Ox 11/16/24 10:29 36.6 C 62 18 151/78 H 93 11/16/24 07:03 36.6 C 66 18 156/78 H 93 11/16/24 04:53 63 16 177/73 H 94 11/16/24 04:12 36.5 C 72 16 161/72 H 94 11/16/24 03:12 36.6 C 70 18 166/73 H 94 11/16/24 03:02 36.6 C 63 18 152/71 H 94 11/16/24 02:42 36.7 C 63 16 160/72 H 91 11/16/24 02:27 36.7 C 64 16 141/63 H 96 11/16/24 02:09 36.5 C 66 16 142/73 H 96 11/16/24 00:49 36.5 C 61 16 150/74 H 95 11/16/24 00:33 36.5 C 69 16 160/68 H 97 11/15/24 23:33 36.5 C 65 16 159/81 H 98 O2 Del Method 11/16/24 10:29 Room Air 11/16/24 07:03 Room Air 11/16/24 04:53 11/16/24 04:12 11/16/24 03:12 11/16/24 03:02 Room Air 11/16/24 02:42 11/16/24 02:27 11/16/24 02:09 11/16/24 00:49 11/16/24 00:33 11/15/24 23:33 PG Care Time/CCT Total # of Minutes Spent Total Time Spent with Patient: Total time spent is greater than 50% in coordination of care (as documented) at patient's floor/unit and/or counseling patient: Coding Level of Care Code 31725 IN/OBS CONSULT LVL 4,60M Diagnoses Anemia D64.9
--- NOTE | 2024-11-16 11:53 | CT Scan Report ---
MAXILLOFACIAL CT WITHOUT CONTRAST CLINICAL HISTORY: Acute dental pain and sinus presure upper right. COMPARISON STUDY: None. TECHNIQUE: A maxillofacial CT was performed without IV contrast. Coronal and sagittal reformats were viewed. Automated exposure control was utilized for the study. A dose lowering technique was utiliz ed adhering to the principles of ALARA. FINDINGS: Visualized portions of the intracranial contents are unenhanced exam. Mastoid air cells are clear. There is no fluid within the middle ears. Ossicles are intact. There is mild mucosal thickeni ng of the right maxillary sinus. The right ostiomeatal complex is occluded by mucosal thickening. The re is mild rightward deviation of the nasal septum. Mckenna bullosa of the bilateral middle turbinates are incidentally noted. No sinus air-fluid levels are present. Several teeth are absent. There are m ultiple dental amalgams. There is a periapical lucency of the left first maxillary molar (ADA #14). T here are periapical lucencies of the right first and second maxillary molars (ADA #3,4). Although no clear fistula to the right maxillary sinus, there is right maxillary sinus mucosal thickening at osse ous irregularity of the floor of the right maxillary sinus. No abscess within the adjacent soft tissu es is identified on unenhanced exam. IMPRESSION: 1. Periapical lucencies of the right first and second maxillary molars (ADA #3,4). Although no clear fistula to the right maxillary sinus, osseous irregularity of the right maxillary sinus floor. Theref ore, right maxillary sinus mucosal thickening is likely odontogenic. No fluid collection within the a djacent soft tissues to suggest abscess. 2. Periapical lucency of the left first maxillary molar. ACT 112: Negative or not required by law. Electronically signed by: Chuckie Garcia M.D. 11/16/2024 11:51 AM
[2024-11-16] MEDS: HYDROmorphone INJ 0.5 MG/0.5 ML SYR IV STA (14:25)
--- NOTE | 2024-11-16 18:20 | Hospitalist Progress Note ---
Date of Service November 16, 2024 Assessment & Plan (1) Lower GI bleed: (2) Paroxysmal atrial fibrillation: (3) Dental infection: Plan Patient is a 63-year-old female with past medical history of tobacco use (10 to 20 cigarettes/day), nonischemic cardiomyopathy and paroxysmal A-fib s/p pacemaker with ICD, CAD s/p cardiac stent April 2023, PE and DVT 2020, DM, COY, HTN. Patient presented due to referral by her PCP for hemoglobin of 7.7. Patient has had intermittent bright red blood in stool as well as exertional dyspnea, dizziness, and fatigue. She has been taking ibuprofen over the weekend as she has had a dental abscess on her right side for several months and is currently undergoing a course of antibiotics. She is being admitted for a suspected lower GI bleed. #lower GI bleed - H&H stable this morning 8.4 & 28 - which is increased from admission. Patient did receive 2 unit PRBCs in the ED as patient was dizziness and dyspneic. She remains hemodynamically stable and without over signs of bleeding on exam this morning. Symptomatic with intermittent dizziness, dyspnea, and fatigue - asymptomatic at bedside. Patient denies ever having previous EGD or colonoscopy. Recent NSAID use with anticoagulation. - CT abdomen/pelvis w/o contrast ordered and negative for acute changes - GI consulted and appreciate recommendations - plan for EGD/colonoscopy possibly Thursday once she has washout time for Plavix; both Eliquis and Plavix are on hold at this time. Will continue to monitor patient status - continue IV Rocephin 2000mg IV q24 - continue protonix 40mg IV BID - continue IV fluids - LR 80 mL/hour - continue CBC, BMP qAM - transfuse as needed - regular diet started for patient and she is planned for procedure on Thursday. #dental abscess - ongoing for several months, patient with difficultly finding a dentist. WBC without leukocytosis - OMFS consulted and appreciate recommendations - plan for CT for evaluation of the teeth and sinuses to help guide treatment plan - CT face showing periapical lucenies of the right first and second maxillary molars; no clear fistula. There is no fluid collection within the adjacent soft tissues to suggest abscess. - clindamycin IV & continue ceftriaxone as above - pain control with Tylenol 1g IV and morphine IV for breakthrough pain - continue to hold anticoagulation - cardiology consulted as well given patient cardiac history - recommended echo to evaluate/rule out endocarditis #renal insufficiency - Cr continues to improve - now 0.99 this AM IVF as above Trend BMP #Hx PE and DVT - hold Eliquis #paroxysmal A-fib/nonischemic cardiomyopathy/CAD s/p pacer and ICD in place, cardiac stenting April 2023. - Holding Eliquis and Plavix - continue to hold statin and carvedilol - cardiology consulted; echo ordered and results pending #tobacco use 10 to 20 cigarettes/day. Nicotine patch ordered Encourage smoking cessation #Type II DM hold metformin - loose SSI ordered #mental health - continue amitriptyline and duloxetine VTE ppx: SCDs, hold Eliquis with GI bleed - note hx of DVT and PE in 2020 Dispo: PCU Admission and Anticipated Discharge Date Admission Date: November 15, 2024 Supervising Physician Co-Signing Physician Notes I personally examined the patient and verified all hernandez points of history and exam, discussed case, and agree with decision making with Dr Saleem No further bleeding. Feeling pretty good overall. Vitals noted, in general she is awake and alert pleasant no distress. HEENT normocephalic atraumatic mucous membranes moist. Breathing unlabored no accessory muscle use good effort. Skin without rashes pallor or icterus. Neuro without focal deficits. Lower GI bleeding with acute blood loss anemia/symptomatic anemia (dyspnea/fatigue) now improved status post 2 units of packed red cells. For colonoscopy in near future. Dental abscessper maxillofacial. Otherwise as above. Subjective Patient was seen and examined at bedside this morning. Alert, awake, and responding appropriately. No acute distress. No overnight events. No acute concerns. Reports feeling well this morning and has not have recent grossly bloody bowel movement. Has been NPO since admission. Denies nausea/vomiting/abdominal pain. Has been ambulating and voiding without concern. Denies chest pain, shortness of breath. Review of Systems Review of Systems: All systems reviewed & are unremarkable except as noted in HPI & below Physical Exam Constitutional: WD/WN, vitals as above Respiratory: normal respiratory effort, lungs clear to auscultation Cardiovascular: RRR, no murmur, no edema Gastrointestinal (Abdomen): normal bowel sounds, soft, nontender, no hepatosplenomegaly Musculoskeletal: Head/Neck/Chest: normocephalic and head atraumatic Extremities: extremities normal to inspection Skin: no rashes, warm and dry Neurologic: no focal neurological deficits Psychiatric: A+Ox3, euthymic affect Results & Data Results & Data Vital Signs (Past 12 Hours) Vital Signs Temp Pulse Pulse Resp BP Pulse Ox O2 Del Method 11/16/24 15:49 72 11/16/24 15:01 36.6 C 67 20 175/87 H 93 Room Air 11/16/24 10:29 36.6 C 62 18 151/78 H 93 Room Air 11/16/24 07:03 36.6 C 66 18 156/78 H 93 Room Air Resident Activity Tracking Resident Involvement: Resident Care Provided Care Provided: Adult Hospital Medicine
--- NOTE | 2024-11-16 18:20 | Billing Data ---
Date of Service November 16, 2024 Coding Level of Care Code 33171 SUB INP/OBS CARE MIN
[2024-11-16] MEDS: AMITRIPTYLINE HCL 10 MG TAB PO SCH (20:22)
[2024-11-16] MEDS: cefTRIAXone SODIUM 2,000 MG/50 ML BAG IV SCH (20:22)
[2024-11-17] MEDS: HYDROmorphone INJ 0.5 MG/0.5 ML SYR IV STA ×2 (03:29→10:38)
--- NOTE | 2024-11-17 08:10 | Electrocardiogram Report ---
Test Reason : Blood Pressure : */* mmHG Vent. Rate : 67 BPM Atrial Rate : 67 BPM P-R Int : 176 ms QRS Dur : 64 ms QT Int : 370 ms P-R-T Axes : 91 -1 63 degrees QTcB Int : 390 ms Normal sinus rhythm Low voltage QRS Cannot rule out Anterior infarct , age undetermined Abnormal ECG When compared with ECG of 28-Aug-2014 11:36, Premature atrial complexes are no longer Present QRS duration has decreased Minimal criteria for Anterior infarct are now Present Confirmed by Magui Camara ([id number]) on 11/17/2024 8:09:58 AM Referred By: Confirmed By: Magui Camara
[2024-11-17] MEDS: MoRPHine SULFATE 2 MG/ML CARP IV PRN (08:42)
[2024-11-17 08:57] LABS: Hematocrit (blood only) 31.7 % (37.0-47.0); Hemoglobin 9.9 g/dl (12.0-16.0); Immature Granulocytes # (auto) 0.02 K/uL (0.01-0.20); Immature Granulocytes % (auto) 0.2 %; Mean Corpuscular Hemoglobin 24.1 pg (25.0-34.0); Mean Corpuscular Volume 77.1 fL (80.0-100.0); Platelet Count 334 K/uL (130-400); RDW Standard Deviation 47.3 fL (36.4-46.3); Red Blood Count 4.11 M/uL (4.20-5.40); White Blood Count 9.06 K/ul (4.8-10.8)
[2024-11-17] MEDS: MAGNESIUM OXIDE 400 MG TAB PO SCH (09:10)
[2024-11-17 09:13] LABS: Anion Gap 7.0 (3-11); Blood Urea Nitrogen 27.0 mg/dl (6-23); Calcium 9.1 mg/dl (8.6-10.3); Carbon Dioxide 24.0 mmol/L (21-32); Chloride 106.0 mmol/L (98-107); Creatinine Clr Calc Pharmacy 66.4 ml/min; Glucose 104.0 mg/dl (70-99(Fasting)); Potassium 4.3 mmol/L (3.5-5.1); Sodium 137.0 mmol/L (136-145)
[2024-11-17] MEDS ORDERED: HYDROmorphone INJ 0.5 MG/0.5 ML SYR IV PRN (10:09)
[2024-11-17] MEDS: HYDROmorphone INJ 0.5 MG/0.5 ML SYR IV PRN (11:24)
--- NOTE | 2024-11-17 11:50 | Gastroenterology Progress Note ---
Date of Service November 17, 2024 Assessment & Plan (1) Anemia: Plan: -Clear liquid diet today -Bowel prep tonight and keep NPO after midnight for EGD & colonoscopy on 11/18/24. This will be done in the OR as a dual case with Dr. Gil from oral surgery due to her dental issues. -Continue PPI -Continue to monitor H/H Admission and Anticipated Discharge Date Admission Date: November 15, 2024 Subjective Patient is a 63 yo female with anemia and intermittent BRBPR. H/H is 9.9/31.7. No further bleeding since admission. She offers no new complaints today. Review of Systems Gastrointestinal: no abdominal pain, no blood in stools and no melena Physical Exam Constitutional: well developed Respiratory: normal respiratory effort Psychiatric: Orientation: alert and oriented x 3 Results & Data Results & Data Vital Signs (Past 12 Hours) Vital Signs Temp Pulse Pulse Resp BP Pulse Ox O2 Del Method 11/17/24 11:03 36.7 C 62 20 168/73 H 91 Room Air 11/17/24 08:23 71 11/17/24 07:29 36.8 C 72 18 170/78 H 91 Room Air 11/17/24 03:25 36.7 C 72 18 183/84 H 91 Room Air PG Care Time/CCT Total # of Minutes Spent Total Time Spent with Patient: Total time spent is greater than 50% in coordination of care (as documented) at patient's floor/unit and/or counseling patient: Coding Level of Care Code 42206 SUB INP/OBS CARE 2/35MIN Diagnoses Anemia D64.9
--- NOTE | 2024-11-17 12:06 | Cardiology Consultation ---
Date of Consultation November 17, 2024 Assessment & Plan (1) Paroxysmal atrial fibrillation: (2) Pulmonary embolism: (3) GI bleed: (4) Anemia: Plan Her Plavix is on hold at this time and given that she is more than a year out from her RCA stent the Plavix can probably be discontinued. As long as she does not have upper GI sources of bleeding we may be able to resume her aspirin. I would recommend that while she is here she had both colonoscopy and the EGD. When I saw her in the office she had a fair amount of upper GI symptoms as well as acid reflux and I am not sure if this is perhaps related to her ibuprofen. She has never had a colonoscopy in the past so clearly this needs to be done as well. We should take advantage of the fact that she is off of both her Plavix and Eliquis at this time. Depending on the results of her GI evaluation further recommendations may follow. I think it is reasonably safe for her to be off of her blood thinners temporarily. Hopefully Dr. Gil will also be able to coordinate with GI to be able to treat her dental abscess. I am concerned that she has pacemaker and is probably easier for us to treat this while she is an inpatient and off of her blood thinners at this point and then to wait as an outpatient. She is very s ymptomatic with her dental pain at this point and I would not want her to continue taking ibuprofen given the above issues. Her echo appears to be essentially normal with normal LV function with mild LVH. Her previous chip separator has documented that she has an obstructive cardiomyopathy and that is not accurate. At no point have I seen echoes on her that have shown any signs of an outflow tract gradient. The etiology of her cardiomyopathy is not completely clear but seems to have responded to both Entresto as well as carvedilol and I would continue both of these medications. Her most recent pacemaker interrogation show a low burden of paroxysmal atrial fibrillation so I think it is reasonably safe to keep her off of her anticoagulation for short period of time as per GIs recommendations. We also discussed smoking cessation and hopefully she is going to be able to continue to not smoke as an outpatient. Thank you for allowing me to participate in the care of this very nice woman. I will follow-up with her as an outpatient after discharge. History of Present Illness Reason for Consultation: Cardiac eval Attending Physician: Davide Adam, DO History of Present Illness Please see my office note from 11/15/2024. I saw her in the office and actually sent her into the hospital due to the significant severe anemia combined with the fact that she was on both NOAC as well as antiplatelet therapy. She has a history of a nonischemic cardiomyopathy which was diagnosed in 2020 as well as coincidental single-vessel coronary disease she underwent left heart catheterization in April 2023 and was found to have a RCA lesion which was stented. She has been on Plavix for 1 year and is probably okay to come off of the Plavix at this point. She is on Eliquis for both history of DVT pulmonary embolus which actually preceded her cardiac diagnosis as well as paroxysmal atrial fibrillation which we have been following through her pacemaker defibrillator. She was admitted to the hospital received blood transfusions and has been evaluated by GI. She has had both upper GI symptoms with acid reflux indigestion which may be related to the increased amounts of ibuprofen she has been taking as well as bright red blood per rectum. Certainly she is going to need a complete GI evaluation while she is here hopefully they can do both EGD and colonoscopy on her at the same time. In addition, she has had very significant dental abscess and has been trying to deal with this and get into see an outpatient dentist. She has had 3 different courses of antibiotics because of abscess and has been using ibuprofen frequently to help control pain. She is been evaluated by Dr. Aris Gil while here in the hospital and I recommended that while she is here off of her blood thinners that we take advantage of that fact and try to treat this abscess as best possible. Dr. Sterling will try to coordinate with GI and see if we can get these procedures done while she is here. From a cardiac standpoint she appears to be reasonably stable and not having any cardiac symptoms. Her recent shortness of breath that she has noted is clearly related to the significant and acute onset of anemia. Her echo done today shows mild LVH with normal LV systolic function. Her pacemaker wire is visible. There were no significant valvular abnormalities. Allergies Allergy/AdvReac Type Severity Reaction Status Date / Time No Known Allergies Allergy Unverified 10/09/14 05:36 Home Medications Medication Instructions Recorded Confirmed Type AMITRIPTYLINE HCL 10 mg PO HS ##0 11/04/13 History ATORVASTATIN (LIPITOR) 10 mg PO QAM #0 tabs 11/04/13 History Hydrocodon/Acetaminophen 5MG/300MG 1 tab PO Q6H PRN Pain #0 tabs 11/04/13 History (VICODIN (5MG/300MG)) LEVOTHYROXINE SODIUM (SYNTHROID) 50 mcg PO QAM #0 tabs 11/04/13 History Duloxetine HCl (Cymbalta) 30 mg PO QAM ##0 08/28/14 History Gabapentin (Neurontin) 100 mg PO TID #0 caps 08/28/14 History apixaban 5 mg tablet (Eliquis) 5 mg PO BID 11/16/24 11/16/24 History carvedilol 12.5 mg tablet mg 11/16/24 History clopidogrel 75 mg tablet 75 mg PO DAILY 11/16/24 11/16/24 History Patient History Medical History Cardiac pacemaker Tobacco use disorder Reactive airway disease Presence of combination internal cardiac defibrillator (ICD) and pacemaker Nonischemic cardiomyopathy Iron deficiency anemia Hypertension History of pulmonary embolism Uterine fibroid Diabetes Dental abscess Coronary artery disease Controlled substance agreement signed Combined hyperlipidemia Chronic pain syndrome Adjustment disorder with depressed mood Acquired hypothyroidism Paroxysmal atrial fibrillation Degenerative disc disease, lumbar (01/25/13) Surgical History Status post coronary artery stent placement S/P lumbar laminectomy Social History Smoking Status: Current every day smoker Tobacco Type: Cigarettes Cigarettes Per Day: 10-20 cigarettes/day; Hx Alcohol Use: No Hx Substance Use: No Preferred Language: Chadian Communication Ability: Effective Orthopedic Physician Assistant Required: No Beliefs That Will Affect Care: None marital status: Single Current Living Situation: Spouse current occupational status: employed Other Information That Helps Us Care for You: No Feels Safe at Home: Yes Safety Concerns: Feels Safe At This Time Assistive Devices: Cane and Walker Review of Systems Review of Systems: All systems reviewed & are unremarkable except as noted in HPI & below Physical Exam Physical Exam: Awake alert oriented x 3 in mild distress due to her dental pain Respiratory: normal respiratory effort, lungs clear to auscultation Cardiovascular: RRR, no murmur, no edema Results & Data Vital Signs (Past 12 Hours) Vital Signs Temp Pulse Pulse Resp BP Pulse Ox O2 Del Method 11/17/24 03:25 36.7 C 72 18 183/84 H 91 Room Air 11/16/24 22:58 36.5 C 67 18 171/78 H 95 Room Air 11/16/24 22:03 66 11/16/24 19:45 Room Air Laboratory Results Abnormal lab results 11/16/24 11/16/24 11/17/24 Range/Units 16:13 20:04 07:19 RBC (4.20-5.40) M/uL Hgb (12.0-16.0) g/dl Hct (37.0-47.0) % MCV (80.0-100.0) fL MCH (25.0-34.0) pg MCHC (32.0-36.0) g/dL RDW Std Deviation (36.4-46.3) fL RDW Coeff of Lizbeth (11.5-14.5) % Guthrie # (Auto) (0.11-0.59) K/uL BUN (6-23) mg/dl BUN/Creatinine Ratio (10-20) Glucose (70-99(Fasting)) mg/dl POC Glucose 112 H 112 H 119 H (70-99) mg/dl 11/17/24 Range/Units 07:51 RBC 4.11 L (4.20-5.40) M/uL Hgb 9.9 L (12.0-16.0) g/dl Hct 31.7 L (37.0-47.0) % MCV 77.1 L (80.0-100.0) fL MCH 24.1 L (25.0-34.0) pg MCHC 31.2 L (32.0-36.0) g/dL RDW Std Deviation 47.3 H (36.4-46.3) fL RDW Coeff of Lizbeth 17.0 H (11.5-14.5) % Guthrie # (Auto) 0.92 H (0.11-0.59) K/uL BUN 27 H (6-23) mg/dl BUN/Creatinine Ratio 23.3 H (10-20) Glucose 104 H (70-99(Fasting)) mg/dl POC Glucose (70-99) mg/dl Medications Administered Current Inpatient Medications Amitriptyline HCl (Amitriptyline Hcl 10 Mg Tab) 10 mg PO HS REPLACED BY [facility] Stop: 12/16/24 20:59 Last Admin: 11/16/24 20:22 Dose: 10 mg Bisacodyl (Bisacodyl 5 Mg Tabec) 20 mg PO ONCE ONE Stop: 11/17/24 15:42 Dextrose (Dextrose 50% 50 Ml Syringe) 25 - 50 ml IV UD PRN; Protocol PRN Reason: Hypoglycemia Protocol Stop: 12/15/24 21:27 Duloxetine HCl (Duloxetine Hcl 30 Mg Cap) 30 mg PO QAM REPLACED BY [facility] Stop: 12/17/24 08:59 Last Admin: 11/17/24 09:10 Dose: 30 mg Glucagon (Glucagon For Inj 1 Mg Vial) 1 mg SQ UD PRN; Protocol PRN Reason: Hypoglycemia Protocol Stop: 12/15/24 21:27 Glucose (Glucose 40% Gel 15 Gm Tube) 15 - 30 gm PO UD PRN; Protocol PRN Reason: Hypoglycemia Protocol Stop: 12/15/24 21:27 Glucose (Glucose 10 Tab/Tube) 4 - 8 tab PO UD PRN; Protocol PRN Reason: Hypoglycemia Protocol Stop: 12/15/24 21:27 Hydromorphone HCl (Hydromorphone Inj 0.5 Mg/0.5 Ml Syr) 0.25 mg IV Q4H PRN PRN Reason: Mild Pain (Scale 1, 2, 3) Stop: 12/01/24 10:08 Hydromorphone HCl (Hydromorphone Inj 0.5 Mg/0.5 Ml Syr) 0.5 mg IV Q4H PRN PRN Reason: Moderate Pain (Scale 4, 5, 6) Stop: 12/01/24 10:08 Last Admin: 11/17/24 11:24 Dose: 0.5 mg Acetaminophen (Ofirmev) 1,000 mg in 100 mls @ 400 mls/hr IV Q8H PRN PRN Reason: Pain or Fever Stop: 11/18/24 21:27 Last Infusion: 11/16/24 19:45 Dose: Infused Ceftriaxone Sodium (Rocephin) 2,000 mg in 50 mls @ 100 mls/hr IV Q24H REPLACED BY [facility] Stop: 11/26/24 20:59 Last Infusion: 11/16/24 21:05 Dose: Infused Clindamycin Phosphate (Cleocin/D5w) 600 mg in 50 mls @ 100 mls/hr IV Q8H REPLACED BY [facility] Stop: 11/26/24 05:59 Last Infusion: 11/17/24 06:43 Dose: Infused Pantoprazole Sodium (Protonix) 40 mg in 10 mls @ 5 mls/min IV BID REPLACED BY [facility] Stop: 12/16/24 08:59 Last Admin: 11/17/24 08:33 Dose: 5 mls/min Insulin Aspart (Insulin Aspart Per Unit Charge) 0 units SC ACHS REPLACED BY [facility] Stop: 12/15/24 21:27 Last Admin: 11/17/24 08:34 Dose: Not Given Magnesium Oxide (Magnesium Oxide 400 Mg Tab) 400 mg PO QAM REPLACED BY [facility] Stop: 12/17/24 08:59 Last Admin: 11/17/24 09:10 Dose: 400 mg Miscellaneous (Carbohydrates For Hypoglycemia ) 15 - 30 gm PO UD PRN PRN Reason: Hypoglycemia Protocol Stop: 12/15/24 21:27 Miscellaneous (Remove Nicoderm Patch) 1 each N/A DAILY@0859 REPLACED BY [facility] Stop: 12/16/24 08:58 Last Admin: 11/17/24 08:33 Dose: 1 each Nicotine (Nicotine 21 Mg/24 Hr Tdsy) 1 patch TD QAM REPLACED BY [facility] Stop: 12/16/24 08:59 Last Admin: 11/17/24 08:32 Dose: 1 patch Ondansetron HCl (Ondansetron Inj 2 Mg/Ml 2 Ml Vial) 4 mg IV Q6H PRN PRN Reason: Nausea And Vomiting Stop: 12/15/24 21:27 Polyethylene Glycol (Polyethylene (Miralax) 17 Gm Pack) 238 gm PO ONCE ONE Stop: 11/17/24 15:01
--- NOTE | 2024-11-17 12:29 | Hospitalist Progress Note ---
Date of Service November 17, 2024 Assessment & Plan (1) Lower GI bleed: (2) Paroxysmal atrial fibrillation: (3) Dental infection: Plan Patient is a 63-year-old female with past medical history of tobacco use (10 to 20 cigarettes/day), nonischemic cardiomyopathy and paroxysmal A-fib s/p pacemaker with ICD, CAD s/p cardiac stent April 2023, PE and DVT 2020, DM, COY, HTN. Patient presented due to referral by her PCP for hemoglobin of 7.7. Patient has had intermittent bright red blood in stool as well as exertional dyspnea, dizziness, and fatigue. She has been taking ibuprofen over the weekend as she has had a dental abscess on her right side for several months and is currently undergoing a course of antibiotics. She is being admitted for a suspected lower GI bleed. #lower GI bleed - H&H stable this morning 9.9 & 32% - which is increased from admission. Patient did receive 2 unit PRBCs in the ED as patient was dizziness and dyspneic. She remains hemodynamically stable and without overt signs of bleeding on exam this morning. Symptomatic with intermittent dizziness, dyspnea, and fatigue - asymptomatic at bedside. Patient denies ever having previous EGD or colonoscopy. Recent NSAID use with anticoagulation. - CT abdomen/pelvis w/o contrast ordered and negative for acute changes - GI consulted and appreciate recommendations - plan for EGD/colonoscopy possibly Thursday once she has washout time for Plavix; both Eliquis and Plavix are on hold at this time. Will continue to monitor patient status - patient on clear liquid diet today - start bowel prep tonight and NPO at midnight for EGD & colonoscopy ; planning to do as dual case with Dr. Gil from oral surgery due to dental issues - continue protonix 40mg IV bid - continue IV Rocephin 2000mg IV q24 - continue IV fluids - LR 80 mL/hour - continue CBC, BMP qAM - transfuse as needed #dental abscess - ongoing for several months, patient with difficultly finding a dentist. WBC without leukocytosis - OMFS consulted and appreciate recommendations - plan for CT for evaluation of the teeth and sinuses to help guide treatment plan - CT face showing periapical lucencies of the right first and second maxillary molars; no clear fistula. There is no fluid collection within the adjacent soft tissues to suggest abscess. Plan is to do tooth extractions tomorrow during EGD/colonoscopy in OR tomorrow - clindamycin IV & continue ceftriaxone as above - pain has been poorly controlled thus far - changed pain regimen: tylenol 1000mg q8 prn, hydromorphone 0.25 mg IV q4h prn for mild pain, hydromorphone 0.5 mg IV q4h prn for moderate pain - continue to hold anticoagulation #renal insufficiency - Cr 1.66 this AM IVF as above Trend BMP #Hx PE and DVT - hold Eliquis #paroxysmal A-fib/nonischemic cardiomyopathy/CAD s/p pacer and ICD in place, cardiac stenting April 2023. - telemetry monitoring overnight with 18 beat run of NSVT - patient asymptomatic during episode and continues asymptomatic at bedside this morning. - cardiology consulted and appreciate recommendations - will continue to hold blood thinners (Plavix & Eliquis) temporarily - echo completed 11/16/24 showing mild aortic valve stenosis, EF 55-60%, normal LV function with mild LVH. - resumed carvedilol 12.5 po bid and entresto po bid #tobacco use 10 to 20 cigarettes/day. Nicotine patch ordered Encourage smoking cessation #Type II DM hold metformin - loose SSI ordered #mental health - continue amitriptyline and duloxetine VTE ppx: SCDs, hold Eliquis with GI bleed - note hx of DVT and PE in 2020 Dispo: PCU Admission and Anticipated Discharge Date Admission Date: November 15, 2024 Supervising Physician Co-Signing Physician Notes I personally examined the patient and verified all hernandez points of history and exam, discussed case, and agree with decision making with Dr Saleem Feeling okay. No new complaints. Saw at the same time as cardiology and then discussed together with cardiology and maxillofacial. Vitals noted, in general she is awake and alert pleasant no distress. HEENT normocephalic atraumatic mucous membranes moist. Breathing unlabored no accessory muscle use good effort. Skin without rashes pallor or icterus. Neuro without focal deficits. Lower GI bleeding with acute blood loss anemia/symptomatic anemia (dyspnea/fatigue) now improved status post 2 units of packed red cells. for colonoscopy tomorrow. Dental abscess is to be managed by maxillofacial to tai. Input from consulting teams greatly appreciated. Subjective Patient seen and examined at bedside this morning. Alert, awake, responding appr opriately. No acute distress. No overnight events. Tolerating diet well. Has not had bowel movement yet this morning, but denies gross blood per rectum. Denies N/V/abdominal pain. Has been ambulating and voiding without concern Review of Systems Review of Systems: All systems reviewed & are unremarkable except as noted in HPI & below Physical Exam Constitutional: WD/WN, vitals as above Respiratory: normal respiratory effort, lungs clear to auscultation Cardiovascular: RRR, no murmur, no edema Gastrointestinal (Abdomen): normal bowel sounds, soft, nontender, no hepatosplenomegaly Musculoskeletal: Head/Neck/Chest: normocephalic and head atraumatic Extremities: extremities normal to inspection Skin: no rashes, warm and dry Neurologic: no focal neurological deficits Psychiatric: A+Ox3, euthymic affect Results & Data Results & Data Vital Signs (Past 12 Hours) Vital Signs Temp Pulse Pulse Resp BP Pulse Ox O2 Del Method 11/17/24 11:03 36.7 C 62 20 168/73 H 91 Room Air 11/17/24 08:23 71 11/17/24 07:29 36.8 C 72 18 170/78 H 91 Room Air 11/17/24 03:25 36.7 C 72 18 183/84 H 91 Room Air Resident Activity Tracking Resident Involvement: Resident Care Provided Care Provided: Adult Hospital Medicine
[2024-11-17] MEDS ORDERED: POLYETHYLENE (MIRALAX) 17 GM PACK PO ONE (15:00)
[2024-11-17] MEDS: METOPROLOL TARTRATE 1 MG/ML VIAL IV STA (16:54)
[2024-11-17] MEDS ORDERED: POLYETHYLENE (MIRALAX) 17 GM PACK PO SCH (18:00)
--- NOTE | 2024-11-17 18:11 | Billing Data ---
Date of Service November 17, 2024 Coding Level of Care Code 92684 SUB INP/OBS CARE MIN
[2024-11-17] MEDS: POLYETHYLENE (MIRALAX) 17 GM PACK PO SCH (20:45)
[2024-11-17] MEDS: VALSARTAN/SACUBITRIL 51/49 MG TAB PO SCH (21:03)
[2024-11-18 08:34] LABS: Hematocrit (blood only) 33.6 % (37.0-47.0); Hemoglobin 10.7 g/dl (12.0-16.0); Mean Corpuscular Hemoglobin 24.6 pg (25.0-34.0); Mean Corpuscular Volume 77.2 fL (80.0-100.0); Platelet Count 317 K/uL (130-400); RDW Standard Deviation 48.8 fL (36.4-46.3); Red Blood Count 4.35 M/uL (4.20-5.40); White Blood Count 7.98 K/ul (4.8-10.8)
[2024-11-18 08:51] LABS: Anion Gap 9.0 (3-11); Blood Urea Nitrogen 22.0 mg/dl (6-23); Calcium 9.5 mg/dl (8.6-10.3); Carbon Dioxide 24.0 mmol/L (21-32); Chloride 107.0 mmol/L (98-107); Creatinine Clr Calc Pharmacy 69.4 ml/min; Glucose 107.0 mg/dl (70-99(Fasting)); Potassium 3.9 mmol/L (3.5-5.1); Sodium 140.0 mmol/L (136-145)
--- NOTE | 2024-11-18 09:39 | Cardiology Progress Note ---
Date of Service November 18, 2024 Assessment & Plan (1) Paroxysmal atrial fibrillation: (2) GI bleed: (3) Anemia: Plan Her Plavix is on hold at this time and given that she is more than a year out from her RCA stent the Plavix can probably be discontinued. As long as she does not have upper GI sources of bleeding we may be able to resume her aspirin. She is scheduled for a colonoscopy and endoscopy today. Dr. Gil has coordinated with GI to treat her dental abscess at the time of her colonoscopy. She is in quite a bit of pain and I think her heart rates and blood pressures are likely being influenced by it. Her echo appears to be essentially normal with normal LV function with mild LVH. Her previous rejected items clerk has documented that she has an obstructive cardiomyopathy and that is not accurate. At no point have I seen echoes on her that have shown any signs of an outflow tract gradient. The etiology of her cardiomyopathy is not completely clear but seems to have responded to both Entresto as well as carvedilol and I would continue both of these medications. Her most recent pacemaker interrogation show a low burden of paroxysmal atrial fibrillation so I think it is reasonably safe to keep her off of her anticoagulation for short period of time as per GIs recommendations. Her blood pressure leaves room to push her beta blockers to control her heart rate. I will increase her carvedilol to 18.75 mg bid (this appears to be her outpatient dose). She is generally asymptomatic when in afib. We can also monitor her afib burden on her device at her next interrogation. She was recommended to quit smoking. Her case was discussed with Dr. Camara who is in agreement Admission and Anticipated Discharge Date Admission Date: November 15, 2024 Subjective Ms. Berg's heart rates are as high as 160 in afib when she is up and moving around. She does not feel being in afib. No sob. No chest pain. Her main complaint is her persistent dental/jaw pain. Review of Systems Review of Systems: All systems reviewed & are unremarkable except as noted in HPI & below Physical Exam Constitutional: WD/WN, vitals as above Respiratory: normal respiratory effort, lungs clear to auscultation Cardiovascular: Rate/Rhythm: + tachycardic; + abnormal rate and + abnormal rhythm Heart Sounds: normal S1 and normal S2 Extremities: no edema Skin: no rashes, warm and dry Neurologic: moves all extremities and awake Psychiatric: A+Ox3, euthymic affect Results & Data Vital Signs (Past 12 Hours) Vital Signs Temp Pulse Pulse Resp BP Pulse Ox O2 Del Method 11/18/24 07:06 37.2 C 77 16 139/79 94 Room Air 11/18/24 03:05 36.7 C 70 18 148/78 H 91 Room Air 11/17/24 21:45 80
--- NOTE | 2024-11-18 10:24 | Gastroenterology Progress Note ---
Date of Service November 18, 2024 Assessment & Plan (1) GI bleed: Plan: 63 year old female w/ histor of tobacco use, nonischemic cardiomyopathy, paroxysmal afib s/p pacemaker with ICD, CAD s/p cardiac stent April 2023, PE and DVT in 2020, T2DM, COY, HTN npo for EGD/Colonoscopy evaluation today of anemia and rectal bleeding Maintain NPO status Plan for EGD/Colonoscopy today Please refer to previous notes for additional recommendations/plans We appreciate assistance in the management of any serological abnormality and corrections to include: hemoglobin >7, INR <2, platelets >50,000, potassium levels >3.5 but <5.3, and sodium levels within 5 points of the reference range prior to endoscopic evaluation. Admission and Anticipated Discharge Date Admission Date: November 15, 2024 Subjective NPO for EGD/Colonoscopy. Offers no concerns this AM. No abd pain. No nausea/vomiting. She suggests her stools are liquid, tinted blue/green due to her intake. No black/bloody stools. Review of Systems Review of Systems: All other findings negative except as noted in HPI. Physical Exam Constitutional: WD/WN, vitals as above Respiratory: normal respiratory effort, lungs clear to auscultation Gastrointestinal (Abdomen): normal bowel sounds, soft, nontender, no hepatosplenomegaly Skin: no rashes, warm and dry Results & Data Results & Data Vital Signs (Past 12 Hours) Vital Signs Temp Pulse Resp BP Pulse Ox O2 Del Method 11/18/24 07:06 99.0 F 77 16 139/79 94 Room Air 11/18/24 03:05 98.1 F 70 18 148/78 H 91 Room Air Laboratory Results 11/18/24 11/18/24 11/17/24 Range/Units 08:09 07:03 20:04 WBC 7.98 (4.8-10.8) K/ul RBC 4.35 (4.20-5.40) M/uL Hgb 10.7 L (12.0-16.0) g/dl Hct 33.6 L (37.0-47.0) % MCV 77.2 L (80.0-100.0) fL MCH 24.6 L (25.0-34.0) pg MCHC 31.8 L (32.0-36.0) g/dL RDW Std Deviation 48.8 H (36.4-46.3) fL RDW Coeff of Lizbeth 17.5 H (11.5-14.5) % Plt Count 317 (130-400) K/uL MPV 9.3 L (9.4-12.4) fL Sodium 140 (136-145) mmol/L Potassium 3.9 (3.5-5.1) mmol/L Chloride 107 (98-107) mmol/L Carbon Dioxide 24 (21-32) mmol/L Anion Gap 9 (3-11) BUN 22 (6-23) mg/dl Creatinine 1.11 (0.6-1.2) mg/dl Est Cr Clr Drug Dosing 69.4 ml/min eGFR 56.55 BUN/Creatinine Ratio 19.8 (10-20) Glucose 107 H (70-99(Fasting)) mg/dl POC Glucose 110 H 114 H (70-99) mg/dl Calcium 9.5 (8.6-10.3) mg/dl 11/17/24 11/17/24 Range/Units 16:18 11:15 WBC (4.8-10.8) K/ul RBC (4.20-5.40) M/uL Hgb (12.0-16.0) g/dl Hct (37.0-47.0) % MCV (80.0-100.0) fL MCH (25.0-34.0) pg MCHC (32.0-36.0) g/dL RDW Std Deviation (36.4-46.3) fL RDW Coeff of Lizbeth (11.5-14.5) % Plt Count (130-400) K/uL MPV (9.4-12.4) fL Sodium (136-145) mmol/L Potassium (3.5-5.1) mmol/L Chloride (98-107) mmol/L Carbon Dioxide (21-32) mmol/L Anion Gap (3-11) BUN (6-23) mg/dl Creatinine (0.6-1.2) mg/dl Est Cr Clr Drug Dosing ml/min eGFR BUN/Creatinine Ratio (10-20) Glucose (70-99(Fasting)) mg/dl POC Glucose 86 97 (70-99) mg/dl Calcium (8.6-10.3) mg/dl PG Care Time/CCT Total # of Minutes Spent Total Time Spent with Patient: Total time spent is greater than 50% in coordination of care (as documented) at patient's floor/unit and/or counseling patient: Coding Level of Care Code None Diagnoses GI bleed K92.2
[2024-11-18] MEDS ORDERED: ONDANSETRON INJ 2 MG/ML 2 ML VIAL IV PRN (13:06)
[2024-11-18] MEDS ORDERED: ATROPINE SULFATE 0.1 MG/ML 10ML SYR IV PRN (13:06)
--- NOTE | 2024-11-18 13:06 | Anesthesiology Consultation ---
Date of Service November 18, 2024 Assessment & Plan Chart Review Chart Review: Acceptable Risk for Surgery and Patient NOT seen in Pre Admission Testing Consults Requested none History Surgery Operation Date: 11/18/24 13:30 Proposed Procedures p Colonoscopy - Carrillo Izquierdo MD s Esophagogastroduodenoscopy - MD dustin Haywood Removal Teeth #2 and #3 - Aris Gil DMD s Debridement Right Sinus - Aris Gil DMD Height/Weight Height: 5 ft 7 in Weight: 114 kg Allergies Allergy/AdvReac Type Severity Reaction Status Date / Time No Known Allergies Allergy Unverified 10/09/14 05:36 Medications Home Medications Medication Instructions Recorded Confirmed Last Taken AMITRIPTYLINE HCL 10 mg PO HS ##0 11/04/13 Unknown ATORVASTATIN (LIPITOR) 10 mg PO QAM #0 tabs 11/04/13 Unknown Hydrocodon/Acetaminophen 5MG/300MG 1 tab PO Q6H PRN Pain #0 tabs 11/04/13 Unknown (VICODIN (5MG/300MG)) LEVOTHYROXINE SODIUM (SYNTHROID) 50 mcg PO QAM #0 tabs 11/04/13 Unknown Duloxetine HCl (Cymbalta) 30 mg PO QAM ##0 08/28/14 Unknown Gabapentin (Neurontin) 100 mg PO TID #0 caps 08/28/14 Unknown apixaban 5 mg tablet (Eliquis) 5 mg PO BID 11/16/24 11/16/24 Unknown carvedilol 12.5 mg tablet mg 11/16/24 Unknown clopidogrel 75 mg tablet 75 mg PO DAILY 11/16/24 11/16/24 Unknown Active Medications Generic Name Dose Route Start Last Admin Trade Name Freq PRN Reason Stop Dose Admin Amitriptyline HCl 10 mg 11/16/24 21:00 11/17/24 21:03 Amitriptyline Hcl 10 Mg Tab PO 12/16/24 20:59 10 mg HS TRACY Administration Duloxetine HCl 30 mg 11/17/24 09:00 11/18/24 08:09 Duloxetine Hcl 30 Mg Cap PO 12/17/24 08:59 30 mg QAM TRACY Administration Hydromorphone HCl 0.5 mg 11/17/24 10:09 11/17/24 20:52 Hydromorphone Inj 0.5 Mg/0.5 Ml Syr IV 12/01/24 10:08 0.5 mg Q4H PRN Administration Moderate Pain (Scale 4, 5, 6) Acetaminophen 1,000 mg in 100 mls @ 400 mls/hr 11/15/24 21:28 11/16/24 19:45 Ofirmev IV 11/18/24 21:27 Infused Q8H PRN Infusion Pain or Fever Ceftriaxone Sodium 2,000 mg in 50 mls @ 100 mls/hr 11/16/24 21:00 11/17/24 21:27 Rocephin IV 11/26/24 20:59 Infused Q24H TRACY Infusion Clindamycin Phosphate 600 mg in 50 mls @ 100 mls/hr 11/16/24 06:00 11/18/24 07:17 Cleocin/D5w IV 11/26/24 05:59 Infused Q8H TRACY Infusion Pantoprazole Sodium 40 mg in 10 mls @ 5 mls/min 11/16/24 09:00 11/18/24 08:10 Protonix IV 12/16/24 08:59 5 mls/min BID TRACY Administration Insulin Aspart 0 units 11/15/24 21:28 11/18/24 11:27 Insulin Aspart Per Unit Charge SC 12/15/24 21:27 Not Given ACHS TRACY Magnesium Oxide 400 mg 11/17/24 09:00 11/18/24 08:09 Magnesium Oxide 400 Mg Tab PO 12/17/24 08:59 400 mg QAM TRACY Administration Miscellaneous 1 each 11/16/24 08:59 11/18/24 08:09 Remove Nicoderm Patch N/A 12/16/24 08:58 1 each DAILY@[id number] TRACY Administration Nicotine 1 patch 11/16/24 09:00 11/18/24 08:09 Nicotine 21 Mg/24 Hr Tdsy TD 12/16/24 08:59 1 patch QAM TRACY Administration Sacubitril/Valsartan 1 tab 11/17/24 21:00 11/18/24 08:10 Valsartan/Sacubitril 51/49 Mg Tab PO 12/17/24 20:59 1 tab BID TRACY Administration NPO Date Last Intake of Fluids: 11/18/24 Time Last Intake of Fluids: 03:00 Last Intake of Fluids Comment: miralax Date Last Intake of Solids: 11/17/24 Time Last Intake of Solids: 18:00 Past Medical History Medical History Cardiac pacemaker Tobacco use disorder Reactive airway disease Presence of combination internal cardiac defibrillator (ICD) and pacemaker Nonischemic cardiomyopathy Iron deficiency anemia Hypertension History of pulmonary embolism Uterine fibroid Diabetes Dental abscess Coronary artery disease Controlled substance agreement signed Combined hyperlipidemia Chronic pain syndrome Adjustment disorder with depressed mood Acquired hypothyroidism Paroxysmal atrial fibrillation Degenerative disc disease, lumbar (01/25/13) Past Surgical History Surgical History Status post coronary artery stent placement S/P lumbar laminectomy Social History Smoking Status: Current every day smoker Smoking cigarettes per day: 10-20 cigarettes/day Hx Alcohol Use: No Hx Substance Use: No Physical Exam Vital Signs Last Vital Signs Temp 36.9 C 11/18/24 12:50 Pulse 89 11/18/24 12:50 Resp 20 11/18/24 12:50 BP 134/82 11/18/24 12:50 Pulse Ox 95 11/18/24 12:50 O2 Del Method Room Air 11/18/24 12:50 Testing Laboratory Results 11/18/24 08:09 11/18/24 08:09 PT 10.3 Seconds (9.0-12.0) 11/15/24 18:01 INR 0.9 (0.9-1.1) 11/15/24 18:01 APTT 21 Seconds (21-31) 11/15/24 18:01 Blood Type B Positive 11/15/24 18:03 Antibody Screen NEGATIVE 11/15/24 18:03 11/18/24 11/18/24 11:10 07:03 POC Glucose 120 H 110 H
[2024-11-18] MEDS: LACTATED RINGER'S 1,000 ML IV SCH (13:12)
[2024-11-18] MEDS ORDERED: LIDOCAINE 2% 20 MG/ML 5 ML SYR IV ONE (13:20)
[2024-11-18] MEDS ORDERED: PROPOFOL IV EMULSION 10 MG/ML 20 ML VIAL IV ONE (13:20)
--- NOTE | 2024-11-18 13:20 | Hospitalist Progress Note ---
Date of Service November 18, 2024 Assessment & Plan (1) Lower GI bleed: (2) Paroxysmal atrial fibrillation: (3) Dental infection: Plan Patient is a 63-year-old female with past medical history of tobacco use (10 to 20 cigarettes/day), nonischemic cardiomyopathy and paroxysmal A-fib s/p pacemaker with ICD, CAD s/p cardiac stent April 2023, PE and DVT 2020, DM, COY, HTN. Patient presented due to referral by her PCP for hemoglobin of 7.7. Patient has had intermittent bright red blood in stool as well as exertional dyspnea, dizziness, and fatigue. She has been taking ibuprofen over the weekend as she has had a dental abscess on her right side for several months and is currently undergoing a course of antibiotics. She is being admitted for a suspected lower GI bleed. #lower GI bleed - H&H stable this morning 10.7 & 33.6% - which is increased from admission. Patient did receive 2 unit PRBCs in the ED as patient was dizziness and dyspneic. She remains hemodynamically stable and without overt signs of bleeding on exam this morning. Symptomatic with intermittent dizziness, dyspnea, and fatigue - asymptomatic at bedside. Patient denies ever having previous EGD or colonoscopy. Recent NSAID use with anticoagulation. - CT abdomen/pelvis w/o contrast ordered and negative for acute changes - GI consulted and appreciate recommendations - underwent EGD/colonoscopy today. EGD showing erythematous gastric mucosa and a duodenal erosion without bleeding. Biopsied taken. Colonoscopy showing diverticulosis and nonbleeding internal/external hemorrhoids. Recommended to restart antiplatelet and anticoagulation. Eliquis resumed; plavix and aspirin still hold Patient remains hemodynamically stable post-op. - will begin on clear liquid diet given dental procedure was completed at the same time. Can advance diet in the morning if tolerating well/no issues arise. - continue protonix 40mg IV bid - continue IV Rocephin 2000mg IV q24 - continue IV fluids - LR 80 mL/hour - continue CBC, BMP qAM - transfuse as needed #dental abscess - ongoing for several months, patient with difficultly finding a dentist. WBC without leukocytosis - OMFS consulted and appreciate recommendations - CT face showing periapical lucencies of the right first and second maxillary molars; no clear fistula. There is no fluid collection within the adjacent soft tissues to suggest abscess. - now s/p extraction of #2 & #3, incison and drainage of right upper soft tissue - clindamycin IV & continue ceftriaxone as above - pain has been poorly controlled thus far - changed pain regimen: tylenol 1000mg q8 prn, hydromorphone 0.25 mg IV q4h prn for mild pain, hydromorphone 0.5 mg IV q4h prn for moderate pain - eliquis resumed ; plavix and aspirin hold. #renal insufficiency - Cr 1.11 this AM IVF as above Trend BMP #Hx PE and DVT - Eliquis resumed - has been asymptomatic; no lower extremity edema, calf tenderness or erythema #paroxysmal A-fib/nonischemic cardiomyopathy/CAD s/p pacer and ICD in place, cardiac stenting April 2023. - telemetry monitoring overnight NSR, however in AM converted to atrial fibrillation with a rate 70s. Was asymptomatic during this episodes and at bedside this morning - cardiology consulted and appreciate recommendations - Eliquis resumed; hold Plavix ; continue aspiring hold given duodenal erosion - echo completed 11/16/24 showing mild aortic valve stenosis, EF 55-60%, normal LV function with mild LVH. - resumed carvedilol 18.5mg po bid and entresto po bid #tobacco use 10 to 20 cigarettes/day. Nicotine patch ordered Encourage smoking cessation #Type II DM hold metformin - loose SSI ordered #mental health - continue amitriptyline and duloxetine VTE ppx: SCDs, Eliquis resumed Dispo: PCU Admission and Anticipated Discharge Date Admission Date: November 15, 2024 Supervising Physician Co-Signing Physician Notes I personally examined the patient and verified all hernandez points of history and exam, discussed case, and agree with decision making with Dr Saleem Feeling okay. No new complaints. For multiple procedures today. Vitals noted, in general she is awake and alert pleasant no distress. HEENT normocephalic atraumatic mucous membranes moist. Breathing unlabored no accessory muscle use good effort. Skin without rashes pallor or icterus. Neuro without focal deficits. Lower GI bleeding with acute blood loss anemia/symptomatic anemia (dyspnea/fatigue) now improved status post 2 units of packed red cells. Scopes and oral surgery procedure today. Discussed with her that if she is feeling well we could consider discharge tonightbut likely with everything she is going through today it will make a lot more sense to let her rest and recover and look towards home in the morning. Subjective Patient seen and examined at bedside this morning. Alert, awake and responding appropriately. No acute distress. Telemetry monitoring this morning noted switch from NSR to atrial fibrillation, however patient is asymptomatic at bedside. D enies chest pain, palpitations, SOB, headache, dizziness. Rate controlled. Has been NPO since midnight for EGD/colonoscopy. Stools are clear. Denies nausea/vomiting/abdominal pain. Ambulating and voiding well without complaint Review of Systems Review of Systems: All systems reviewed & are unremarkable except as noted in HPI & below Physical Exam Constitutional: WD/WN, vitals as above Respiratory: normal respiratory effort, lungs clear to auscultation Cardiovascular: RRR, no murmur, no edema Gastrointestinal (Abdomen): normal bowel sounds, soft, nontender, no hepatosplenomegaly Musculoskeletal: Head/Neck/Chest: normocephalic and head atraumatic Extremities: extremities normal to inspection Skin: no rashes, warm and dry Psychiatric: A+Ox3, euthymic affect Results & Data Results & Data Vital Signs (Past 12 Hours) Vital Signs Temp Pulse Resp BP Pulse Ox O2 Del Method 11/18/24 12:50 36.9 C 89 20 134/82 95 Room Air 11/18/24 10:52 36.7 C 113 H 19 127/61 91 Room Air 11/18/24 07:06 37.2 C 77 16 139/79 94 Room Air 11/18/24 03:05 36.7 C 70 18 148/78 H 91 Room Air Resident Activity Tracking Resident Involvement: Resident Care Provided Care Provided: Adult Hospital Medicine
[2024-11-18] MEDS ORDERED: ROCURONIUM BROMIDE 10 MG/ML 5 ML VIAL IV ONE (13:21)
[2024-11-18] MEDS ORDERED: MIDAZOLAM HCL 1 MG/ML 2ML VIAL ONE (13:21)
[2024-11-18] MEDS ORDERED: PHENYLEPHRINE HCL 10 MG/ML VIAL ONE (13:26)
[2024-11-18] MEDS ORDERED: ONDANSETRON INJ 2 MG/ML 2 ML VIAL ONE (13:37)
[2024-11-18] MEDS ORDERED: DEXAMETHASONE SOD INJ 4 MG/ML VIAL ONE (13:37)
--- NOTE | 2024-11-18 13:50 | History & Physical Bridge Note ---
Date of Service November 18, 2024 History & Physical Bridge Note I have examined the patient, reviewed the History & Physical and in the interval since the performance of the History & Physical I have noted the following changes of clinical significance: no changes noted Removal Teeth #2 and #3 and ? Debridement Right Sinus
[2024-11-18] MEDS ORDERED: ESMOLOL HCL INJ 10 MG/ML 10ML VIAL IV ONE (14:13)
[2024-11-18] MEDS ORDERED: PHENYLEPHRINE 100MCG/ML 5ML SYR ONE (14:32)
--- NOTE | 2024-11-18 15:03 | GI REPORT ---
[facility] Patient: HELEN OAKLEY : 1960 Sex at : Female Age: 63 Years Procedure: Colonoscopy Date: 11/18/2024 Attending Physician: Carrillo Izquierdo MD Referring MD: Referred Self; Davide Adam Indications: - Iron deficiency anemia - Rectal bleeding Medications: - See the Anesthesia note for documentation of the administered medications Complications: - No immediate complications. Estimated Blood Loss: - Estimated blood loss: None. Procedure: - Prior to the procedure, a History and Physical was performed, and patient medications and allergies were reviewed. The patient's tolerance of previous anesthesia was also reviewed. The risks and benefits of the procedure and the sedation options and risks were discussed with the patient. All questions were answered, and informed consent was obtained. Prior Anticoagulants: The patient has taken Eliquis (apixaban), last dose was 3 days prior to procedure. ASA Grade Assessment: III - A patient with severe systemic disease. After reviewing the risks and benefits, the patient was deemed in satisfactory condition to undergo the procedure. - The pediatric colonoscope was introduced through the anus and advanced to the terminal ileum, with identification of the appendiceal orifice and ileocecal valve. - The colonoscopy was performed without difficulty. - The quality of the bowel preparation was evaluated using the BBPS ([place] Bowel Preparation Scale) with scores of: Right Colon = 3, Transverse Colon = 3 and Left Colon = 3 (entire mucosa seen well with no residual staining, small fragments of stool or opaque liquid). The total BBPS score equals 9. - The terminal ileum, ileocecal valve, appendiceal orifice, and rectum were photographed. Findings: - The terminal ileum appeared normal. - Scattered diverticula were found in the entire colon. - Internal non-bleeding hemorrhoids were found during retroflexion. The hemorrhoids were moderate. - External non-bleeding hemorrhoids were found during perianal exam. The hemorrhoids were small. Impression: - The examined portion of the ileum was normal. - Diverticulosis in the entire examined colon. - Internal non-bleeding hemorrhoids. - External non-bleeding hemorrhoids. - No specimens collected. Recommendation: - Repeat colonoscopy in 10 years for screening purposes. - Patient has a contact number available for emergencies. The signs and symptoms of potential delayed complications were discussed with the patient. Return to normal activities tomorrow. Written discharge instructions were provided to the patient. - High fiber diet. - Maintain regular bowel movements. Use Miralax if needed to avoid straining. - To visualize the small bowel, perform video capsule endoscopy at appointment to be scheduled. Procedure Code(s): - 56481, Colonoscopy, flexible; diagnostic, including collection of specimen(s) by brushing or washing, when performed (separate procedure) Diagnosis Code(s): - D50.9, Iron deficiency anemia, unspecified - K62.5, Hemorrhage of anus and rectum - K64.4, Residual hemorrhoidal skin tags - K64.8, Other hemorrhoids - K57.30, Diverticulosis of large intestine without perforation or abscess without bleeding CPT(R) - 2023 copyright [employer]. All Rights Reserved. The CPT codes, CCI edits and ICD codes generated are intended as suggestions and were generated based on input data. These codes are preliminary and upon duct layer supervisor review may be revised to meet current compliance and payer requirements. The provider is responsible for the final determination of appropriate codes, and modifiers. Carrillo Izquierdo MD This document has been electronically signed. Note Initiated:11/18/2024 Note Completed:11/18/2024 3:02 PM \\[email or web address]\Central\[email or web address]\Data\Provation\Results\LIVE\[id number].pdf
[2024-11-18] MEDS ORDERED: SUGAMMADEX SODIUM 200 MG/2 ML VIAL IV ONE (15:12)
[2024-11-18] MEDS: CHLORHEXIDINE GLUCONATE 0.12% 480 ML MT ONE (15:18)
[2024-11-18] MEDS: BUPIVACAINE/EPINEPHRINE 0.5% 1:200,000 1.8 ML CARP ONE (15:18)
[2024-11-18] MEDS ORDERED: ACETAMINOPHEN 325 MG TAB PO PRN (15:21)
--- NOTE | 2024-11-18 15:21 | GI REPORT ---
[facility] Patient: HELEN OAKLEY : 1960 Sex at : Female Age: 63 Years Procedure: Upper GI endoscopy Date: 11/18/2024 Attending Physician: Carrillo Izquierdo MD Referring MD: Referred Self; Davide Adam Indications: - Anemia Medications: - See the Anesthesia note for documentation of the administered medications Complications: - No immediate complications. Estimated Blood Loss: - Estimated blood loss was minimal. Procedure: - Prior to the procedure, a History and Physical was performed, and patient medications and allergies were reviewed. The patient's tolerance of previous anesthesia was also reviewed. The risks and benefits of the procedure and the sedation options and risks were discussed with the patient. All questions were answered, and informed consent was obtained. Prior Anticoagulants: The patient last took Plavix (clopidogrel) 3 days and Xarelto (rivaroxaban) 3 days prior to the procedure. ASA Grade Assessment: III - A patient with severe systemic disease. After reviewing the risks and benefits, the patient was deemed in satisfactory condition to undergo the procedure. - The egd scope was introduced through the mouth and advanced to the third part of the duodenum. - The upper GI endoscopy was accomplished without difficulty. - The patient tolerated the procedure well. Findings: - Patchy mildly erythematous mucosa without bleeding was found in the entire examined stomach. This was biopsied with a cold forceps for Helicobacter pylori testing. - The Z-line was regular and was found 43 cm from the incisors. This was biopsied with a cold forceps for evaluation to rule out Carrillo's Esophagus. - The cardia and gastric fundus were normal on retroflexion. - Multiple erosions without bleeding were found in the duodenal bulb. Biopsies for histology were taken with a cold forceps for evaluation of celiac disease. - The third portion of the duodenum and second portion of the duodenum were normal. Biopsies for histology were taken with a cold forceps for evaluation of celiac disease. Impression: - Erythematous mucosa in the stomach. Biopsied. - Z-line regular, 43 cm from the incisors. Biopsied. - Duodenal erosions without bleeding. Biopsied. - Normal third portion of the duodenum and second portion of the duodenum. Biopsied. Recommendation: - Await pathology results. - Resume previous diet. - Acceptable to restart anticoagulation and antiplatelet treatment from a GI perspective. Discuss with oral surgeon regarding restarting from their perspective. - To visualize the small bowel, perform video capsule endoscopy at appointment to be scheduled. Procedure Code(s): - 43178, Esophagogastroduodenoscopy, flexible, transoral; with biopsy, single or multiple Diagnosis Code(s): - D64.9, Anemia, unspecified - K31.89, Other diseases of stomach and duodenum - K26.9, Duodenal ulcer, unspecified as acute or chronic, without hemorrhage or perforation CPT(R) - 2023 copyright [employer]. All Rights Reserved. The CPT codes, CCI edits and ICD codes generated are intended as suggestions and were generated based on input data. These codes are preliminary and upon applications analyst review may be revised to meet current compliance and payer requirements. The provider is responsible for the final determination of appropriate codes, and modifiers. Carrillo Izquierdo MD This document has been electronically signed. Note Initiated:11/18/2024 Note Completed:11/18/2024 3:20 PM \\[email or web address]\Central\InterfaceData\Data\Provation\Results\LIVE\[id number]
--- NOTE | 2024-11-18 15:34 | Post Operative Brief Note ---
PG Immediate Post Op with CF Date of Surgery November 18, 2024 Pre & Post Diagnosis Operation Date: 11/18/24 13:30 Pre-Op Diagnosis: LOWER GI BLEED Post-Op Diagnosis: gastritis, duodenitis, diverticulosis, hemorrhoids; Abscess of #2 and 3 teeth. I identified the patient and participated in the time-out.: Yes Procedure Operation Date: 11/18/24 13:30 Actual Procedures p Esophagogastroduodenoscopy with biopsy - Carrillo Izquierdo MD p Colonoscopy - Carrillo Izquierdo MD s Excision of #2 and 3, Incision and drainage of right upper soft tissue. - Aris Gil, DMD Surgeon Aris Gil, DMD Continuous Mining Operator none Estimated Blood Loss 2 Findings Consistent with Post-Op Diagnosis grossly infected teeth and soft tissue infection upper right Specimens Specimen Description: 1411 A: duodenal bx 1414 B: gastric antrum bx 1416 C: gastric body bx 1417 D: GE junction 43cm bx Complications none Disposition Accompanied Patient To Recovery: Yes
--- NOTE | 2024-11-18 16:26 | Anesthesiology Progress Note ---
Date of Service November 18, 2024 Anesthesia Post Procedure Vital Signs Vital Signs: Temp Pulse Pulse Pulse Resp BP BP 11/18/24 16:05 36.6 C 80 16 120/58 L 11/18/24 15:55 79 18 119/69 11/18/24 15:45 76 20 123/61 11/18/24 15:39 36.2 C L 80 18 135/62 11/18/24 14:20 11/18/24 12:50 36.9 C 89 20 134/82 11/18/24 10:52 36.7 C 113 H 19 127/61 11/18/24 07:06 37.2 C 77 16 139/79 11/18/24 03:05 36.7 C 70 18 148/78 H 11/17/24 21:45 80 11/17/24 17:27 108 H 148/81 H 11/17/24 16:54 117 H 134/88 Pulse Ox O2 Del Method O2 Flow Rate 11/18/24 16:05 97 Room Air 11/18/24 15:55 98 Room Air 11/18/24 15:45 99 Room Air 11/18/24 15:39 100 Oxymask 5 11/18/24 14:20 Room Air 11/18/24 12:50 95 Room Air 11/18/24 10:52 91 Room Air 11/18/24 07:06 94 Room Air 11/18/24 03:05 91 Room Air 11/17/24 21:45 11/17/24 17:27 11/17/24 16:54 Pain Intensity Right Face: Pain Intensity: 7 Transfer of Care Handoff Completed per policy Notes Mental Status: alert / awake / arousable Patient Amnestic to Procedure: Yes Nausea / Vomiting: adequately controlled Pain: adequately controlled Airway Patency, RR, SpO2: stable & adequate BP & HR: stable & adequate Hydration State: stable & adequate Anesthetic Complications: no major complications apparent
--- NOTE | 2024-11-18 18:23 | Billing Data ---
Date of Service November 18, 2024 Coding Level of Care Code 32778 SUB INP/OBS CARE
--- NOTE | 2024-11-18 22:24 | Electrocardiogram Report ---
Test Reason : Blood Pressure : */* mmHG Vent. Rate : 116 BPM Atrial Rate : * BPM P-R Int : * ms QRS Dur : 86 ms QT Int : 330 ms P-R-T Axes : * 10 50 degrees QTcB Int : 458 ms Atrial fibrillation with rapid ventricular response with premature ventricular or aberrantly conducte d complexes Low voltage QRS Abnormal ECG When compared with ECG of 15-Nov-2024 18:05, Atrial fibrillation has replaced Sinus rhythm Vent. rate has increased by 49 bpm Minimal criteria for Anterior infarct are no longer Present Confirmed by Jose Jacobs ([id number]) on 11/18/2024 10:23:43 PM Referred By: REFERRED SELF Confirmed By: Jose Jacobs
[2024-11-19 03:40] VITALS: RESP 18
[2024-11-19 06:45] LABS: Hematocrit (blood only) 32.2 % (37.0-47.0); Hemoglobin 10.1 g/dl (12.0-16.0); Mean Corpuscular Hemoglobin 24.7 pg (25.0-34.0); Mean Corpuscular Volume 78.7 fL (80.0-100.0); Platelet Count 288 K/uL (130-400); RDW Standard Deviation 50.6 fL (36.4-46.3); Red Blood Count 4.09 M/uL (4.20-5.40); White Blood Count 9.23 K/ul (4.8-10.8)
[2024-11-19 07:25] LABS: Anion Gap 7.0 (3-11); Blood Urea Nitrogen 21.0 mg/dl (6-23); Calcium 9.0 mg/dl (8.6-10.3); Carbon Dioxide 25.0 mmol/L (21-32); Chloride 106.0 mmol/L (98-107); Creatinine Clr Calc Pharmacy 74.8 ml/min; Glucose 123.0 mg/dl (70-99(Fasting)); Potassium 4.6 mmol/L (3.5-5.1); Sodium 138.0 mmol/L (136-145)
[2024-11-19 08:16] VITALS: BP 122/80; TEMP 98.2; O2SAT 95
[2024-11-19 10:35] VITALS: PULSE 69
[2024-11-19] MEDS ORDERED: APIXABAN 5 MG TABLET PO SCH (14:00)
--- NOTE | 2024-11-19 17:06 | Discharge Summary ---
Discharge Summary Date of Service November 19, 2024 Principal Dx & Hospital Course #1 = Principal Diagnosis (1) Lower GI bleed: (2) Paroxysmal atrial fibrillation: (3) Dental infection: Plan Patient is a 63-year-old female with past medical history of tobacco use (10 to 20 cigarettes/day), nonischemic cardiomyopathy and paroxysmal A-fib s/p pacemaker with ICD, CAD s/p cardiac stent April 2023, PE and DVT 2020, DM, COY, HTN. Patient presented due to referral by her PCP for hemoglobin of 7.7. Patient has had intermittent bright red blood in stool as well as exertional dyspnea, dizziness, and fatigue. She has been taking ibuprofen over the weekend as she has had a dental abscess on her right side for several months and is currently undergoing a course of antibiotics. She is being admitted for a suspected lower GI bleed. #GI bleed - with acute blood loss anemia requiring 2 units packed red cell transfusion. Presentation fit more with lower GI bleed, but scopes suggested that gastritis type bleeding easily could have been at play versus diverticular bleeding. Because of upper GI findingssent on Protonix. NSAID avoidance. And will make resuming Plavix versus switch to aspirin and ongoing discussion with her PCP and orchardist.- - Safe/stable for home. Protonix for a month or 2 depending on her clinical resolution. CBC next week. #dental abscess - Now status post oral surgery. Discussed with maxillofacialfairly friable gum tissue and therefore we will resume Eliquis tomorrow (11/20) and hold on antiplatelet for another week or so depending on her clinical progress. Finish out 5 more days of antibiotics (was on clindamycin and Rocephin herewill send home on clinda and cefdinir) #Hx PE and DVT - Eliquis to be resumed tomorrow, no symptoms. #paroxysmal A-fib/nonischemic cardiomyopathy/CAD s/p pacer and ICD in place, cardiac stenting April 2023. - Rate controlled. Anticoagulation on hold due to GI bleeding and oral surgery. Resume anticoagulation (Eliquis tomorrow). In discussion with myself and her orchardist, she wondered about switching from Plavix to aspirin. From a coronary standpoint this seems reasonable, from a GI standpoint given that she had upper GI erosions it might be better to keep her on Plavixbut at the same time given that she had the dental abscess and was taking a lot of NSAIDs it is far more likely that the NSAIDs cause the gastritis findings not simply that she has a "brittle stomach"and therefore aspirin may be reasonable. This will be a bit of a work in progress depending on how quickly her GI symptoms improve. #tobacco use 10 to 20 cigarettes/day. Encourage smoking cessation #Type II DM A1c 6.4 #mental health - continue amitriptyline and duloxetine Notes For Next Care Provider CBC as an outpatient next week Medication Changes From Visit Eliquis on hold until tomorrow. Plavix on hold until next weekand resuming Plavix versus switching to aspirin as an ongoing discussion with PCP and cardiology. Protonix for 1-3 months depending on clinical improvement Admission HPI Per Admitting Provider Patient is a 63-year-old female with past medical history of tobacco use (10 to 20 cigarettes/day), nonischemic cardiomyopathy and paroxysmal A-fib s/p pa cemaker with ICD, CAD s/p cardiac stent April 2023, PE and DVT 2020, DM, COY, HTN. Patient presented due to referral by her PCP for hemoglobin of 7.7. Patient has had intermittent bright red blood in stool as well as exertional dyspnea, dizziness, and fatigue. She has been taking ibuprofen over the weekend as she has had a dental abscess on her right side for several months and is currently undergoing a course of antibiotics. She is being admitted for a suspected lower GI bleed. Patient seen at bedside with her partner present. She stated she came in because of referral for her low hemoglobin. She does have intermittent bright red blood in her stool sometimes filling the toilet. Most recent episode was probably this morning. She is on both Eliquis and Plavix for history of PE and DVT in 2020 as well as A-fib. She stated she has had exertional dyspnea, dizziness when going from sitting to standing, and fatigue that began over the weekend. She has been taking ibuprofen 600 Mg twice daily regularly over the weekend due to this right sided dental abscess that has been ongoing for several months. She occasionally takes her as needed Vicodin that she has for back pain. She is currently on clindamycin and has 6 doses left for the abscess, it is currently doing well and her pain went from 8/10 to 4/10 after morphine in the ED. She denies any nausea, vomiting, chest pain, melena, diarrhea, constipation, hematuria. She continues to smoke 10 to 20 cigarettes/day, nicotine patch will be ordered. She denies any alcohol use. She is due for her evening medications, last dose of Eliquis was this morning. She wishes to be full code. She has never had an EGD or colonoscopy. Updated Medication List Medication Instructions Recorded Confirmed Type AMITRIPTYLINE HCL 10 mg PO HS ##0 11/04/13 History ATORVASTATIN (LIPITOR) 10 mg PO QAM #0 tabs 11/04/13 History Hydrocodon/Acetaminophen 5MG/300MG 1 tab PO Q6H PRN Pain #0 tabs 11/04/13 History (VICODIN (5MG/300MG)) LEVOTHYROXINE SODIUM (SYNTHROID) 50 mcg PO QAM #0 tabs 11/04/13 History Duloxetine HCl (Cymbalta) 30 mg PO QAM ##0 08/28/14 History Gabapentin (Neurontin) 100 mg PO TID #0 caps 08/28/14 History apixaban 5 mg tablet (Eliquis) 5 mg PO BID 11/16/24 11/16/24 History carvedilol 12.5 mg tablet mg 11/16/24 History cefdinir 300 mg capsule 300 mg PO BID 5 days #10 caps 11/19/24 Rx chlorhexidine gluconate 0.12 % 15 ml buccal BID #1,500 mL 11/19/24 Rx mouthwash (Peridex) clindamycin HCl 300 mg capsule 300 mg PO TID 5 days #15 caps 11/19/24 Rx oxycodone 5 mg tablet 5 mg PO Q6H PRN pain #10 tabs 11/19/24 Rx pantoprazole 40 mg tablet,delayed 40 mg PO DAILY #30 tabs 11/19/24 Rx release Hospital Stay Data Consultations 11/15/24 20:21 ED Decision to Admit Stat 11/15/24 21:28 Consult Gastroenterology Routine 11/16/24 09:29 Consult Cardiology Routine 11/16/24 09:35 Consult Oromaxillofacial Surgery Routine Procedures Performed Operation Date: 11/18/24 13:30 Actual Procedures p Esophagogastroduodenoscopy with biopsy - Carrillo Izquierdo MD p Colonoscopy - Carrillo Izquierdo MD s Excision of #2 and 3, Incision and drainage of right upper soft tissue. - Aris Gil, DMD Diagnostic Imagining Performed 11/15/24 21:01 CT Abdomen and Pelvis [CT abd pelvis wo con] Stat 11/16/24 10:03 CT face [CT facial bones wo con] Routine Pending Results Patient Have Any Pending Studies at Discharge: Yes ( Biopsies from endoscopy) Discharge Instructions Given to Patient (Per Discharging Provider) ADDITIONAL ACTIVITY RECOMMENDATIONS: * [place] teeth after every meal. It is very important to keep your mouth clean to prevent infection. * Starting tonight rinse with the Peridex as directed then 2 x a day * it is very important to keep well hydrated, this prevents fever and possible dry socket pain SPECIAL CARE INSTRUCTIONS: *It is not uncommon that between day 2-4 that your swelling will be at its worst this is very normal, do not be alarmed. * Keep ice on the side of your face for the next 24 to 36 hours. This will help keep the swelling down. * A certain amount of bleeding is to be expected. It is often possible to control mild oozing by placing folded gauze over the area and biting down for 30 minutes. If you are unable to control excessive bleeding, * You may experience some discomfort for a few days. If pain or swelling increases, Call Dr Gil * Return to the office for a follow up check up on: Only if needed, the extraction site will heal naturally * office address--[address] phone # [phone] postoperative antibioticswe will finish out 5 more days of antibioticsclindamycin 300 mg 3 times a day and cefdinir 300 mg twice a day (this largely mirrors what we were doing in the hospital with the IV antibiotics). While probiotics are somewhat limited in how helpful they can be, given that this is a fairly broad antibiotic coverage, it would be reasonable to take a probiotic for the next 2 weeks or so (there is not a lot of great science on 1 versus anothertherefore it would be essentially picking 1 that seems reas onably affordable and/or easy to take) the gastrointestinal bleeding probably was from the inflammatory findings in your stomach (which in turn were probably a side effect of the ibuprofenI would have you strictly avoid all NSAIDsibuprofen, Aleve, naproxen, Motrin, Advil, etc.), and to help your stomach heal over we will have you on pantoprazole 40 mg daily (hopefully only for 1-3 monthscertainly unless absolutely necessary we wanted to be a temporary course of treatment not a "new permanent medication") your PCP will follow how you are doing and be able to guide you on when we can stop it. Because there were diverticuli (very common) on the colonoscopy, it is hard to rule out a diverticular bleed as wellbut there is not really specific treatment for that, and like we discussed when someone has diverticuli and need to be on a blood thinner, people actually do not bleed that often, although it can happen again. That said, the purpose of the Eliquis and Plavix would be to protect your brain and your heart from clotsand as we have been discussing, we can generally stabilize or fix the bleed, we can never give back tissue once it has been clotted offso in the long run, while it can feel a little bit odd, it is usually better to have someone back on the blood thinner as long as they can tolerate it. - Do not take either Eliquis or Plavix today. Start your Eliquis tomorrow. In about a week as long as everything is going well, then it would be reasonable to resume an antiplatelet. This is where it will be a bit of a "work in progress"Plavix is maybe a little bit stronger "blood thinner antiplatelet" and therefore has slightly higher bleeding risk, but does not cause stomach problems; aspirin is a milder "antiplatelet blood thinner" but even at an 81 mg dose can occasionally lead to gastritisso from a heart standpoint it would be quite reasonable to "downgrade" the Plavix to aspirin; from a stomach standpoint it would make more sense to stick with the Plavix. The "working progress" part will really be based on how your stomach is feelingif your stomach heals over well, and it was clear that the ibuprofen was the main culprit, and you go on aspirin and have no problemsthen it would be a better choice. If it seems difficult to get you off of the Protonix, or you go on aspirin and it causes even some degree of indigestion, then it would make more sense to just stick with the Plavix. This will be an issue that both cardiology and primary will work together to guide you through. To do: Take the clindamycin 300 mg 3 times a day and cefdinir 300 mg twice a day (next dose of clindamycin this afternoon, next dose of cefdinir at bedtime tonight) - you can use Tylenol or oxycodone as needed for painTylenol at no more than 2000 mg on the day, take it first-line. Oxycodone 5 mg up to 4 times a day as needed for "breakthrough" pain (caution drowsiness or constipation)obviously do not take the previously prescribed Vicodin (based on prescription history you probably do not even have any at homebut just to be safe) because Vicodin has both Tylenol and a narcotic in itso would really be taking "2 of the same thing" - take the Protonix 40 mg daily - follow-up with your PCP next week - follow-up with cardiology in 2-3 weeks (between PCP and cardiology follow-up they will guide you on the "antiplatelet conundrum" above) - follow-up with Dr. Gil as above - come back to the hospital with any recurrent bleeding, or if he had a fever or if anything just seems "not right" in a way that is hard to figure out Total Time Total Time Spent Total Time Spent (In Minutes): Less than 30
--- NOTE | 2024-11-19 17:11 | Billing Data ---
Date of Service November 19, 2024 Coding Level of Care Code 64429 IN/OBS DISCH 30 MIN/LESS
--- NOTE | 2024-11-28 20:20 | Operative Report ---
PG Post Operative Report Pre & Post Diagnosis Operation Date: 11/18/24 13:30 Pre-Op Diagnosis: LOWER GI BLEED Post-Op Diagnosis: gastritis, duodenitis, diverticulosis, hemorrhoids; Abscess of #2 and 3 teeth. I identified the patient and participated in the time-out.: Yes Procedure Operation Date: 11/18/24 13:30 Actual Procedures p Esophagogastroduodenoscopy with biopsy - Carrillo Izquierdo MD p Colonoscopy - Carrillo Izquierdo MD s Excision of #2 and 3, Incision and drainage of right upper soft tissue. - Aris Gil DMD Surgeon Aris Gil DMD Chemical Analyst none Estimated Blood Loss 2 Findings Consistent with Post-Op Diagnosis carious teeth and infection upper right Excision of #2 and 3, Incision and drainage of right upper soft tissue. Specimens none Drains none Anesthesia Type General Complications none Disposition Accompanied Patient To Recovery: Yes Indications infection upper right cheek and mucobuccal fold Excision of #2 and 3, Incision and drainage of right upper soft tissue. Description of Procedure p Incision and Drainage right maxillary vestibule and cheek space Abscess extraction of abscessed teeth # 2 and 3 ; - Aris Gil DMD ICD 10 K12.2 , L03.211 CPT 44708 I & D of vestibular space of right maxilla D7210 x 2 for tooth # 2 and 3 Once cleared for surgery general anesthesia was achieved, the eyes were protected by the anesthesia dept criteria. A time out was take for patient ID, antibiotics, equipment and position verification once all agreed the procedure began. Local anesthesia using Marcaine with a vasoconstrictor ( 1.8 ml per site) given into left posterior maxilla A throat pack was placed after the oral cavity was irrigated with saline. Once a surgical level of anesthesia was obtained and the local anesthesia was given time for the blocks the surgery was started. I turned my attention to the infection which was located in the in the left cheek,left vestibule, left tuberosity area, Infraorbital fossa area Incision and Drainage (66256 I & D of vestibular space of right maxilla) Using a 15 blade an incision was made in the posterior aspect of the vestibular area upper right side. Once the incision was made a lot of pus extruded from the site. A curved hemostat was carefully placed superior into the infected space to drain the subperiosteal and cheek space. To gain access to the pocket of pus in the cheek another incision was made in the vestibule. This allowed further drainage to escape. I palpated the face and cheek area and no further drainage was expressed. The area was irrigated with at least 100 ml of NS solution. I loose suture was placed to align the tissue with a few 3-0 chromics. I now turned my attention to remove the # 28 tooth. Upper teeth # 2 and 3 (D7210 x 2) The full thick Muco-periosteal flap was made on the facial aspect from #the tuberosity to site # 5. The flap was reflected to expose the the subperiosteal space the bone adjacent to #2 and 3 The drill was used to remove bone and section the roots of the teeth, the teeth were now removed with a 301 elevator and dental forceps. There was a large amount of granulation tissue on the apex and some more pus that was expressed. The site was irrigated and sutured closed. When the I&D and 2 teeth were removed I inspected the sites to insure all bleeding was controlled. I removed the throat pack and suctioned the throat. A gauze pressure dressings was placed. All instrument and sponge count was correct. The patient was allowed to awake from the anesthesia. Once full awake the anesthesia tube was removed and the patient was taken to the recovery room with all vital sign stable. The patient tolerated the surgery very well. I will follow the patient in my office, Rx and instructions will be given upon discharge. I attest to the content of the Intraoperative Record and any orders documented therein. Any exceptions are noted below.
== END 2024-11-19 11:00 | disposition home or self-care (01) | DRG 378 ==
LOC: ED 17:39 → SUATTDRO 20:34 → 2S 20:34